=== PATIENT | male | born 1930 | race Caucasian/White ===

== ENCOUNTER 2017-02-23 10:20 | Inpatient (IN) ==
[2017-02-23] MEDS: Nitroglycerin 0.4 MG TAB.SUBL SL PRN ×2 (11:37→12:11)
[2017-02-23 11:46] LABS: Basophils # 0.1 K/mcL (0.0-0.2); Basophils % 1.3 %; Eosinophils # 0.3 K/mcL (0.0-0.6); Eosinophils % 6.2 %; Hematocrit 41.1 % (37.5-50.1); Hemoglobin 12.8 g/dL (12.9-16.9); Immature Granulocytes % 0.2 % (0-4); Lymphocytes # 0.8 K/mcL (0.6-4.6); Lymphocytes % 14.8 %; Mean Corpuscular HGB Conc 31.1 g/dL (31.6-35.5); Mean Corpuscular Hemoglobin 27.6 pg (28.0-33.3); Mean Corpuscular Volume 88.6 fL (83.0-100.0); Mean Platelet Volume 10.3 fL (9.4-12.4); Monocytes # 0.7 K/mcL (0.0-1.3); Monocytes % 12.8 %; Neutrophils # 3.6 K/mcL (1.6-8.9); Platelet Count 199 K/mcL (140-400); Red Blood Count 4.64 M/mcL (4.19-5.50); Segmented Neutrophils % 64.7 %
[2017-02-23 11:56] LABS: INR 0.9; Prothrombin Time 9.9 Seconds (9.4-12.1)
[2017-02-23 11:59] LABS: Activated Partial Thrombo Time 28.1 Seconds (26.0-36.0)
[2017-02-23 12:00] LABS: Calcium 9.5 mg/dL (8.6-10.8); Potassium 4.2 mEq/L (3.5-4.5)
[2017-02-23] MEDS ORDERED: Aspirin 81 MG TAB.CHEW PO STA (12:33)
--- NOTE | 2017-02-23 12:37 | Emergency Department Note ---
Disposition Clinical Impression: NSTEMI (non-ST elevated myocardial infarction) Disposition: Admitted As Inpatient Condition: Good Chest Pain HPI - General Chief Complaint: ED Chest Pain Stated Complaint: C/P Time Seen by Provider: 02/23/17 11:02 Source: patient, family Limitations: no limitations Vital Signs Reviewed: Yes Nursing Notes Reviewed: Yes - History of Present Illness HPI Narrative: Patient here for evaluation of chest pain. Patient has no previous history of coronary artery disease. Patient has a history of AAA repair. Patient not normally very active on a daily basis. Visiting his in the hospital today. Again having anterior chest pain that radiates down his sides as well as having squeezing of the right and left arm bilaterally. Patient had no nausea or diaphoresis. Patient symptoms are better with rest. Patient's symptoms typically improve with nitroglycerin. Aspirin given. Severity scale (1-10): 4 - Related Data Home Medications Medication Instructions Recorded Confirmed Alendronate Sodium 70 mg PO QWEEK 09/28/16 02/23/17 Cholecalciferol (Vitamin D3) 2,000 unit PO DAILY 09/28/16 02/23/17 [Vitamin D] Dexlansoprazole [Dexilant] 60 mg PO DAILY 09/28/16 02/23/17 Famotidine [Pepcid] 40 mg PO HS 09/28/16 02/23/17 Lisinopril [Zestril] 10 mg PO DAILY 09/28/16 02/23/17 Lovastatin 40 mg PO DAILY 09/28/16 02/23/17 Mirtazapine [Remeron] 15 mg PO HS 09/28/16 02/23/17 Multivits,Ca,Min/Iron/FA/Lycop 2 tab PO DAILY 09/28/16 02/23/17 [Centrum Men's Tablet] Hunter-3/Dha/Epa/Fish Oil [Fish Oil 1,000 mg PO BID 09/28/16 02/23/17 1,000 mg Softgel] Omeprazole 40 mg PO DAILY 09/28/16 02/23/17 Ranitidine HCl [Acid Double Cut Sawyer] 150 mg PO BID 09/28/16 02/23/17 Triamcinolone Acet 0.1% CRM 1 appl TP DAILY 09/28/16 02/23/17 [Kenalog] Allergies Allergy/AdvReac Type Severity Reaction Status Date / Time acetaminophen [From Percocet] Allergy Rash Verified 09/28/16 17:16 Oxycodone [From Percocet] Allergy Rash Verified 09/28/16 17:16 Review of Systems: CONSTITUTIONAL: No weight loss, fever, chills, weakness or fatigue. HEENT: Eyes: No visual changes. Ears, Nose, Throat: No hearing loss, difficulty talking or unable to swallow. SKIN: No rash or itching. CARDIOVASCULAR: Chest pain with radiation to the arms RESPIRATORY: No shortness of breath, cough or sputum. GASTROINTESTINAL: No anorexia, nausea, vomiting or diarrhea. No abdominal pain or blood. GENITOURINARY: No burning on urination or hematuria. NEUROLOGICAL: No headache, dizziness, syncope, paralysis, ataxia, numbness or tingling in the extremities. No change in bowel or bladder control. MUSCULOSKELETAL: No muscle pain, back pain, joint pain or stiffness. Chest Pain PMH - Past Medical History Medical history: Reports: aortic aneurysm, COPD, hyperlipidemia, hypertension Psychiatric history: Reports: depression - Social History Smoking Status: Former smoker Alcohol use: Reports: none Drug use: Reports: none Physical Exam General appearance: NAD, conversant Eyes: anicteric sclerae, moist conjunctivae; PERRL HENT: Atraumatic; oropharynx clear with moist mucous membranes and no mucosal ulcerations Neck: Normal inspection; Trachea midline; FROM, supple Lungs: CTA, with normal respiratory effort and no intercostal retractions CV: RRR, no MRGs Abdomen: Soft, non-tender; no rebound or gaurding Extremities: No peripheral edema or extremity lymphadenopathy Skin: Normal temperature; no rash, ulcers or lesions Psych: Appropriate mood and affect Neuro: alert and oriented to person, place and time - General Limitations: no limitations General appearance: alert Course - Reevaluation(s) Reevaluation #1: Patient reevaluated with almost complete resolution of pain however he does still have some right arm squeezing. - Consultations Consultation #1: Discussed with cardiology, Dr. Lujan. Patient will be seen in conjunction with the hospitalist service. Patient to be started on Plavix and heparin. Vital Signs Temperature 97.9 F 02/23/17 10:25 Pulse Rate 106 02/23/17 10:25 Respiratory Rate 18 02/23/17 10:25 Blood Pressure 187/98 02/23/17 10:25 O2 Sat by Pulse Oximetry 95 02/23/17 10:25 Temperature 97.9 F 02/23/17 10:25 Pulse Rate 90 02/23/17 14:12 Respiratory Rate 22 02/23/17 14:24 Blood Pressure 181/86 02/23/17 14:24 O2 Sat by Pulse Oximetry 96 02/23/17 14:12 Oxygen Delivery Oxygen Delivery Nasal Cannula Chest Pain - Medical Records Medical records reviewed: Yes I reviewed the patient's medical records. - Lab Data Lab results reviewed: Yes I reviewed the patient's lab results. Result diagrams: 02/23/17 11:20 02/23/17 11:20 Lab Results 02/23/17 02/23/17 02/23/17 Range/Units 11:20 11:20 11:20 WBC 5.5 (4.3-11.1) K/mcL RBC 4.64 (4.19-5.50) M/mcL Hgb 12.8 L (12.9-16.9) g/dL Hct 41.1 (37.5-50.1) % MCV 88.6 (83.0-100.0) fL MCH 27.6 L (28.0-33.3) pg MCHC 31.1 L (31.6-35.5) g/dL RDW 16.0 H (11.5-14.5) % Plt Count 199 (140-400) K/mcL MPV 10.3 (9.4-12.4) fL Immature Gran % 0.2 (0-4) % Seg Neutrophils % 64.7 % Lymphocytes % 14.8 % Monocytes % 12.8 % Eosinophils % 6.2 % Basophils % 1.3 % Neutrophils # 3.6 (1.6-8.9) K/mcL Lymphocytes # 0.8 (0.6-4.6) K/mcL Monocytes # 0.7 (0.0-1.3) K/mcL Eosinophils # 0.3 (0.0-0.6) K/mcL Basophils # 0.1 (0.0-0.2) K/mcL PT 9.9 (9.4-12.1) Seconds INR 0.9 APTT 28.1 (26.0-36.0) Seconds Sodium 141 (136-145) mEq/L Potassium 4.2 D (3.5-4.5) mEq/L Chloride 105 (98-109) mEq/L Carbon Dioxide 26 (19-29) mEq/L BUN 17 (8-26) mg/dL Creatinine 1.84 H (0.72-1.25) mg/dL Est GFR ( Amer) 42 L (> 60) Est GFR (Non-Af Amer) 35 L (> 60) BUN/Creatinine Ratio 9 (6-26) Glucose 141 H (70-99) mg/dL Calculated Osmolality 296 (280-300) Calcium 9.5 (8.6-10.8) mg/dL Troponin I (0-0.03) ng/mL 02/23/17 Range/Units 11:20 WBC (4.3-11.1) K/mcL RBC (4.19-5.50) M/mcL Hgb (12.9-16.9) g/dL Hct (37.5-50.1) % MCV (83.0-100.0) fL MCH (28.0-33.3) pg MCHC (31.6-35.5) g/dL RDW (11.5-14.5) % Plt Count (140-400) K/mcL MPV (9.4-12.4) fL Immature Gran % (0-4) % Seg Neutrophils % % Lymphocytes % % Monocytes % % Eosinophils % % Basophils % % Neutrophils # (1.6-8.9) K/mcL Lymphocytes # (0.6-4.6) K/mcL Monocytes # (0.0-1.3) K/mcL Eosinophils # (0.0-0.6) K/mcL Basophils # (0.0-0.2) K/mcL PT (9.4-12.1) Seconds INR APTT (26.0-36.0) Seconds Sodium (136-145) mEq/L Potassium (3.5-4.5) mEq/L Chloride (98-109) mEq/L Carbon Dioxide (19-29) mEq/L BUN (8-26) mg/dL Creatinine (0.72-1.25) mg/dL Est GFR ( Amer) (> 60) Est GFR (Non-Af Amer) (> 60) BUN/Creatinine Ratio (6-26) Glucose (70-99) mg/dL Calculated Osmolality (280-300) Calcium (8.6-10.8) mg/dL Troponin I 0.21 H* (0-0.03) ng/mL - Radiology Data Radiology results reviewed: Yes I reviewed the patient's radiology results. - EKG Data EKG attestation: Yes I reviewed and interpreted this EKG. EKG results narrative: EKG shows sinus tachycardia with occasional PVCs. Ventricular rate 100. Interval 157. QRS 118. QTC 42. Patient has no significant ST elevations or depressions that you have peaked anterior T waves as well as poor R-wave progression. Lateral T-wave changes compared to previous EKG. The inferior leads without significant change. Attestation Statement - Attestation Attestation: I personally interviewed and examined this patient and my medical decision- making was reviewed with the Resident Physician, Dr. Vieira. I agree with the documented findings, disposition and treatment plan as described except to the extent set forth below. Patient is an 86-year-old white male brought to the emergency department by his son from upstairs in the hospital. Patient's is an admitted patient currently and he and his son came to visit her this morning, and while walking into the hospital from the parking lot patient began having generalized anterior chest pain radiating into both arms bilaterally. Patient denies any prior cardiac history and his son convinced him to come down to the emergency for evaluation when the pain persisted upstairs on the floor. Patient arrives complaining of some mild shortness of breath associated with this discomfort. Patient was given aspirin and nitroglycerin with complete relief of his chest discomfort and at this time has persistent right upper arm pain that persists that he rates at about a 3 out of 10 in severity. Patient arrived hemodynamically stable in no respiratory or acute distress. Patient has a history of hypertension hyperlipidemia and has a known AAA. Patient denies any abdominal pain back pain or lower extremity weakness or syncope. I agree with patient's physical exam findings as documented. Following aspirin and nitroglycerin administration patient was continued on teletypesetter monitor and pulse ox and remained hemodynamically stable throughout his ED course. Patient had labs obtained as well as portable chest x-ray. Patient' s troponin came back significantly elevated at 0.21. On reevaluation patient still just complaining of very mild right upper arm pain. Due to ongoing pain without EKG changes and abnormal troponin we contact cardiology to discuss the case. We made them aware that the patient is still having ongoing pain and positive troponin. They agreed with initiating heparin and Plavix patient will be admitted and continuously monitored. Patient will be admitted and cardiology was consult from the ED. Case was discussed with the hospitalist.
[2017-02-23] MEDS ORDERED: *HR* Heparin 5,000 UNIT/ML VIAL IVP PRN (12:38)
[2017-02-23] MEDS ORDERED: *HR* Heparin 5,000 UNIT/ML VIAL IVP ONE (12:38)
[2017-02-23] MEDS ORDERED: 0.9 % Sodium Chloride 1,000 ML ONE (13:02)
[2017-02-23] MEDS: Heparin 25,000 UNIT/500 ML D5W 25,000 UNIT/500 ML MLS IVC SCH (13:07)
[2017-02-23] MEDS ORDERED: Acetaminophen 325 MG TABLET PO PRN (13:25)
[2017-02-23] MEDS ORDERED: Naloxone 0.4 MG/ML INJ IVP PRN (13:25)
--- NOTE | 2017-02-23 13:42 | Internal Med History&Physical ---
<LuceroSalma A - Last Filed: 02/23/17 14:58> Date of Encounter: 02/23/17 Internal Medicine - H&P: HPI History of present illness: Mr. Walker is a 86 year old male Internal Medicine - H&P: Meds Alendronate Sodium 70 mg PO QWEEK 09/28/16 [History] Cholecalciferol (Vitamin D3) [Vitamin D] 2,000 unit PO DAILY 09/28/16 [History] Dexlansoprazole [Dexilant] 60 mg PO DAILY 09/28/16 [History] Famotidine [Pepcid] 40 mg PO HS 09/28/16 [History] Lisinopril [Zestril] 10 mg PO DAILY 09/28/16 [History] Lovastatin 40 mg PO DAILY 09/28/16 [History] Mirtazapine [Remeron] 15 mg PO HS 09/28/16 [History] Multivits,Ca,Min/Iron/FA/Lycop [Centrum Men's Tablet] 2 tab PO DAILY 09/28/16 [ History] Laurens-3/Dha/Epa/Fish Oil [Fish Oil 1,000 mg Softgel] 1,000 mg PO BID 09/28/16 [ History] Omeprazole 40 mg PO DAILY 09/28/16 [History] Ranitidine HCl [Acid Panelbeater] 150 mg PO BID 09/28/16 [History] Allergies acetaminophen [From Percocet] Allergy (Verified 09/28/16 17:16) Rash Oxycodone [From Percocet] Allergy (Verified 09/28/16 17:16) Rash All Systems PM: A 10-system review of systems was performed and is negative for pertinent findings except as documented above in the HPI. - Constitutional Vitals: Temp Pulse Resp BP Pulse Ox 97.9 F 90 22 181/86 96 02/23/17 10:25 02/23/17 14:12 02/23/17 14:24 02/23/17 14:24 02/23/17 14:12 Internal Med - H&P Results - Labs CBC & Chem 7: 02/23/17 11:20 02/23/17 11:20 <Madisyn Pereira - Last Filed: 02/23/17 18:12> Date of Encounter: 02/23/17 Time of Encounter: 13:38 Assessment and Plan (1) NSTEMI (non-ST elevated myocardial infarction) Current visit: Yes Status: Acute Patient presented with bilateral arm pain and chest pain. Troponin elevated at 0.21. EKG showed t-wave changes in lateral leads. Cardiology consulted aspirin, plavix given Heparin drip started. continuous polisher and buffer serial troponins for trend lipid panel with morning labs continue home dose of statin. NPO after midnight for probable LHC. (2) Hypertension Current visit: Yes Status: Acute Hold lisinopril to protect kidneys in preparation for LCH. Start metoprolol 12.5mg BID. Hydralazine 10mg IVP Q6hr PRN for SBP >160 or DBP > 100. Qualifiers: Hypertension type: essential hypertension Qualified Code(s): I10 - Essential (primary) hypertension (3) CKD (chronic kidney disease) Current visit: Yes Status: Acute Patient with CKD, today's Cr of 1.84 is consistent with recent baseline. In anticipation of LHC, will hydrate with 0.9NS at 100mL/hr and hold lisinopril. He will get acetylcystine BID x 2 days as well. Check chemistry daily. Qualifiers: Chronic kidney disease stage: stage 3 (moderate) Qualified Code(s): N18.3 - Chronic kidney disease, stage 3 (moderate) (4) Hyperlipidemia Current visit: Yes Status: Acute check lipid panel with morning labs. continue home dose of statin. Qualifiers: Hyperlipidemia type: unspecified Qualified Code(s): E78.5 - Hyperlipidemia , unspecified (5) AAA (abdominal aortic aneurysm) Current visit: Yes Status: Acute Patient with history of AAA s/p remote repair. Patient had CT abd/pelvis which redemonstrated AAA and recommended follow up in 1 year. Qualifiers: Presence of rupture: without rupture Qualified Code(s): I71.4 - Abdominal aortic aneurysm, without rupture (6) DVT prophylaxis Current visit: Yes Status: Acute anti-embolic stockings Patient on heparin drip for NSTEMI, additional pharmacologic prophylaxis is not warranted. Internal Medicine - H&P: HPI Chief complaint: chest pain Admitted From: Emergency Dept Plans for Post Hospital Care: Home History of present illness: Mr. Walker is a 86 year old male with history of hypertension, hyperlipidemia , chronic kidney disease, abdominal aortic aneurysm status post remote repair, COPD who presented to the emergency department today with complaints of chest pain. Patient reports that he was visiting his in the hospital today and when he got to her room he experienced sharp shooting pain down his left arm he sat down and the pain got worse and he had similar pain down his right arm and then shooting pain down both sides of his chest as well. He denies any shortness of breath, palpitations, lightheadedness, headache, numbness or tingling. By the time he arrived in the ER, his symptoms had mostly resolved. He denies any other complaints. Evaluation in the emergency department revealed elevated troponin of 0.21. Creatinine was 1.84, which is consistent with his recent baseline and his chronic kidney disease. Chest x-ray showed mildly enlarged BX of right with minimal bibasilar opacification. His EKG had T -wave changes in the lateral leads. Cardiology was consult by the emergency department and they recommended he be given aspirin, Plavix, and initiated heparin drip. On exam, patient alert and oriented, in no acute distress. Lungs are mostly clear with some mild scattered wheezes bilaterally. Heart has a regular rhythm. No peripheral edema Past Med Surg Social Fam HX - Past Medical History Medical history: aortic aneurysm, COPD, hyperlipidemia, hypertension Psychiatric history: depression - Past Surgical History Surgical History: vascular surgery (AAA repair) - Social History Smoking Status: Former smoker (70 pack year history) Alcohol use: none Drug use: none All Systems PM: A 10-system review of systems was performed and is negative for pertinent findings except as documented above in the HPI. - Constitutional Constitutional: no chills, no fever(s), no night sweats - EENT Eyes: no change in vision, no discharge, no pain, no photophobia Ears: no ear discharge, no ear pain, no tinnitus Nose, mouth and throat: no dysphagia, no nasal discharge, no neck pain, no sore throat - Cardiovascular Cardiovascular ROS IM: chest pain, no diaphoresis, no dyspnea, no lightheadedness, no palpitations, no syncope - Respiratory Respiratory: no cough, no dyspnea, no wheezing, no excessive phlegm production - Gastrointestinal Gastrointestinal: no abdominal pain, no diarrhea, no hematemesis, no hematochezia, no melena, no nausea, no vomiting - Musculoskeletal Musculoskeletal ROS IM: no numbness, no tingling Additional comments: bilateral arm pain. - Integumentary Integumentary IM: no rash, no unusual bruising - Neurological Neurological ROS: no confusion, no convulsions, no focal weakness, no numbness, no tingling, no tremor(s) - Hematologic/Lymphatic Hematologic/Lymphatic: no easy bruising - Constitutional Vitals: Temp Pulse Resp BP Pulse Ox 97.9 F 94 18 141/98 96 02/23/17 10:25 02/23/17 12:59 02/23/17 12:59 02/23/17 12:59 02/23/17 12:59 General appearance: Present: A&O X 3, pleasant, no acute distress - Head Head exam: Present: atraumatic, normocephalic - Eye Eye exam: Present: PERRL, conjuntiva pink, sclera anicteric Pupils: Present: PERRL - Neck Neck exam general surgery: Present: supple, trachea midline. Absent: lymphadenopathy - Respiratory Respiratory exam: Present: CTAB. Absent: accessory muscle use, rales, rhonchi, wheezes - Cardiovascular Cardiovascular exam: Present: irregular rhythm, +S1, +S2. Absent: diastolic murmur, gallop, rubs, systolic murmur - GI/Abdominal GI/Abdominal exam: Present: normal bowel sounds, soft, no peritoneal signs. Absent: distended, tenderness - Extremities Exam Extremities exam: Present: warm, radial pulses palpable and symetrical. Absent : calf tenderness, cyanotic, pedal edema - Neurological Exam Neurological exam: Present: CN II-XII intact, oriented X3, no focal deficits. Absent: facial droop, speech deficit - Skin Skin exam: Present: dry, intact Internal Med - H&P Results - Labs CBC & Chem 7: 02/23/17 11:20 02/23/17 11:20 Labs: All Lab Results (24 Hours) 02/23/17 02/23/17 02/23/17 Range/Units 11:20 11:20 11:20 WBC 5.5 (4.3-11.1) K/mcL RBC 4.64 (4.19-5.50) M/mcL Hgb 12.8 L (12.9-16.9) g/dL Hct 41.1 (37.5-50.1) % MCV 88.6 (83.0-100.0) fL MCH 27.6 L (28.0-33.3) pg MCHC 31.1 L (31.6-35.5) g/dL RDW 16.0 H (11.5-14.5) % Plt Count 199 (140-400) K/mcL MPV 10.3 (9.4-12.4) fL Immature Gran % 0.2 (0-4) % Seg Neutrophils % 64.7 % Lymphocytes % 14.8 % Monocytes % 12.8 % Eosinophils % 6.2 % Basophils % 1.3 % Neutrophils # 3.6 (1.6-8.9) K/mcL Lymphocytes # 0.8 (0.6-4.6) K/mcL Monocytes # 0.7 (0.0-1.3) K/mcL Eosinophils # 0.3 (0.0-0.6) K/mcL Basophils # 0.1 (0.0-0.2) K/mcL PT 9.9 (9.4-12.1) Seconds INR 0.9 APTT 28.1 (26.0-36.0) Seconds Sodium 141 (136-145) mEq/L Potassium 4.2 D (3.5-4.5) mEq/L Chloride 105 (98-109) mEq/L Carbon Dioxide 26 (19-29) mEq/L BUN 17 (8-26) mg/dL Creatinine 1.84 H (0.72-1.25) mg/dL Est GFR ( Amer) 42 L (> 60) Est GFR (Non-Af Amer) 35 L (> 60) BUN/Creatinine Ratio 9 (6-26) Glucose 141 H (70-99) mg/dL Calculated Osmolality 296 (280-300) Calcium 9.5 (8.6-10.8) mg/dL Troponin I (0-0.03) ng/mL 02/23/17 Range/Units 11:20 WBC (4.3-11.1) K/mcL RBC (4.19-5.50) M/mcL Hgb (12.9-16.9) g/dL Hct (37.5-50.1) % MCV (83.0-100.0) fL MCH (28.0-33.3) pg MCHC (31.6-35.5) g/dL RDW (11.5-14.5) % Plt Count (140-400) K/mcL MPV (9.4-12.4) fL Immature Gran % (0-4) % Seg Neutrophils % % Lymphocytes % % Monocytes % % Eosinophils % % Basophils % % Neutrophils # (1.6-8.9) K/mcL Lymphocytes # (0.6-4.6) K/mcL Monocytes # (0.0-1.3) K/mcL Eosinophils # (0.0-0.6) K/mcL Basophils # (0.0-0.2) K/mcL PT (9.4-12.1) Seconds INR APTT (26.0-36.0) Seconds Sodium (136-145) mEq/L Potassium (3.5-4.5) mEq/L Chloride (98-109) mEq/L Carbon Dioxide (19-29) mEq/L BUN (8-26) mg/dL Creatinine (0.72-1.25) mg/dL Est GFR ( Amer) (> 60) Est GFR (Non-Af Amer) (> 60) BUN/Creatinine Ratio (6-26) Glucose (70-99) mg/dL Calculated Osmolality (280-300) Calcium (8.6-10.8) mg/dL Troponin I 0.21 H* (0-0.03) ng/mL - Impressions ITS Impressions Chest X-Ray 02/23/17 10:36 IMPRESSION: 1. Mildly enlarged cardiac silhouette. 2. Minimal bibasilar opacification, left greater than right, which may represent atelectasis versus airspace disease. D/ / Cj Mendoza MD / Cj Mendoza MD Interpreting Provider: Cj Mendoza MD - Diagnostic Studies Chest x-ray Additional comments: Chest X-Ray 02/23/17 10:36 IMPRESSION: 1. Mildly enlarged cardiac silhouette. 2. Minimal bibasilar opacification, left greater than right, which may represent atelectasis versus airspace disease. D/ / Cj Mendoza MD / Cj Mendoza MD Interpreting Provider: Cj Mendoza MD <Gray Knox - Last Filed: 02/23/17 18:44> Date of Encounter: 02/23/17 Internal Medicine - H&P: HPI History of present illness: Mr. Walker is a 86 year old male All Systems PM: A 10-system review of systems was performed and is negative for pertinent findings except as documented above in the HPI. - Constitutional Vitals: Temp Pulse Resp BP Pulse Ox 97.9 F 83 14 157/83 98 02/23/17 10:25 02/23/17 15:32 02/23/17 15:32 02/23/17 18:35 02/23/17 15:32 Internal Med - H&P Results - Labs CBC & Chem 7: 02/23/17 11:20 02/23/17 11:20 - Attending Attestation I have personally performed a face to face evaluation on this patient and I discussed the assessment and plan with the nurse practitioner. I have reviewed and agree with the documented care plan. History and Exam by me shows: Mr. Walker is a 86 year old male with history of hypertension, hyperlipidemia , chronic kidney disease, abdominal aortic aneurysm status post remote repair, COPD who presented to the emergency department today with complaints of chest pain. Patient reports that he was visiting his in the hospital today and when he got to her room he experienced sharp shooting pain down his left arm. Now his pain completely resolved Gen: A, A, O x 3 Chest: DBS b/l basal regions No crackles Heart: S1S2 +, RRR, No murmurs a/p 1. Acute initial NSTEMI EKG showed T wave changes in lateral leads Troponin significantly elevated at 0.21 and pt does have typical angina equivalent chest pain agree with starting him on Heparin gtt and Plavix Cont ASA ..Will start him on low dose B aline Metoprolol 12.5mg BID Scheduled for [facility] in AM by Card
[2017-02-23] MEDS: 0.9 % Sodium Chloride 1,000 ML IVC SCH (15:58)
[2017-02-23] MEDS: *HR* Acetylcysteine 20% 600 MG/3 ML ORAL SYRINGE PO SCH ×2 (16:04→21:05)
[2017-02-23 20:02] LABS: Activated Partial Thrombo Time > 320.0 Seconds (26.0-36.0)
[2017-02-23 20:56] LABS: Heparin anti-factor XA UFH 1.27 IU/mL (0.30-0.70)
[2017-02-23] MEDS ORDERED: NON-FORMULARY MEDICATION 1 EACH EACH (Ranitidine Hcl [Acid Reducer] 150 MG) PO SCH (21:00)
[2017-02-23] MEDS: Mirtazapine 15 MG TABLET PO SCH (21:05)
[2017-02-23] MEDS: Famotidine 20 MG TABLET PO SCH (21:05)
[2017-02-24 01:04] LABS: Basophils # 0.1 K/mcL (0.0-0.2); Basophils % 1.6 %; Eosinophils # 0.4 K/mcL (0.0-0.6); Eosinophils % 7.5 %; Hematocrit 40.9 % (37.5-50.1); Hemoglobin 12.6 g/dL (12.9-16.9); Immature Granulocytes % 0.2 % (0-4); Lymphocytes # 1.1 K/mcL (0.6-4.6); Lymphocytes % 19.9 %; Mean Corpuscular HGB Conc 30.8 g/dL (31.6-35.5); Mean Corpuscular Hemoglobin 27.3 pg (28.0-33.3); Mean Corpuscular Volume 88.5 fL (83.0-100.0); Mean Platelet Volume 10.8 fL (9.4-12.4); Monocytes % 16.6 %; Neutrophils # 3.1 K/mcL (1.6-8.9); Platelet Count 206 K/mcL (140-400); Red Blood Count 4.62 M/mcL (4.19-5.50); Red Cell Distribution Width 15.9 % (11.5-14.5); Segmented Neutrophils % 54.2 %
[2017-02-24 01:25] LABS: Calcium 8.8 mg/dL (8.6-10.8); Chol/HDL Ratio 5.7 (0-4.9); Potassium 4.2 mEq/L (3.5-4.5)
[2017-02-24] MEDS: 0.9 % Sodium Chloride 1,000 ML IVC SCH ×2 (01:55→17:12)
[2017-02-24] MEDS: Aspirin 81 MG TAB.CHEW PO SCH (09:37)
[2017-02-24] MEDS: *HR* Acetylcysteine 20% 600 MG/3 ML ORAL SYRINGE PO SCH ×2 (09:37→20:23)
[2017-02-24] MEDS: *HR* Heparin 5,000 UNIT/ML VIAL IVP PRN (09:40)
--- NOTE | 2017-02-24 10:29 | Cardiology Consult Note ---
Date of Encounter: 02/24/17 Time of Encounter: 10:27 Assessment and Plan (1) NSTEMI (non-ST elevated myocardial infarction) Current Visit: Yes Status: Acute This is a 86 y.o. male with Hyperlipidemia and significant tobacco abuse history. Troponins elevated and peaked at 1.78. Most recent TN 1.65 Patient had typical chest pain symptoms. currently he is chest pain free and hemodynamically stable. EKG had some T wave inversions in leads 2,3, and AVF. KERRI score of 4 We will hold off on LHC today given his renal function and questionable renal mass. Would recommend continuing IV fluids. Would recommend consultation to nephrology for input on patients renal mass ( possible Renal Cell carcinoma per report) and patient would also be a high risk for kidney injury should he require LHC. We will check a TTE. continue heparin gtt, Lipitor, ASA, Plavix, and beta aline. (2) CKD (chronic kidney disease) stage 3, GFR 30-59 ml/min Current Visit: Yes Status: Acute as stated above. (3) Renal mass Current Visit: Yes Status: Acute Ct scan of the abdomen from 09/28/16 reveals: "Heterogeneously enhancing lesions again identified along the anterior aspect of the right kidney which measures approximately 6.2 x 6.4 cm. As described on prior exam this lesion was smaller on prior study dated September 06, 2007. Given the enhancing component of the lesion remains indeterminate and renal cell carcinoma cannot be excluded. " management per primary team. May consider nephrology consultation for their input. (4) Former smoker Current Visit: Yes Status: Acute patient smoked 69 years and has quit 4 years ago. (5) Hyperlipidemia Current Visit: Yes Status: Acute continue lipitor. Qualifiers: Qualified Code(s): E78.5 - Hyperlipidemia, unspecified Discussion w patient/family: The assessment and plan as outlined above was discussed with the patient and/or family members who expressed understanding and agreement. All questions were answered. Thank you for involving us in the care of your patient. Please call with any questions. History of Present Illness Consult date: 02/24/17 Requesting physician: Madisyn Pereira Consult reason: NSTEMI Chief complaint: chest pain History of present illness: Mr. Walker is a 86 year old male who was admitted to [facility] on 02/23/17 for NSTEMI. Today Mr. Walker states that he had come to the hospital to visit i his who is ill. He states that he was dropped off at the wrong side of the hospital and had to walk a long ways and climb a flight of stairs prior to getting to his 's room. He states that he begin having 10/10 pain in the left arm. He states is was a squeezing pain. He then began to have pain in the right arm and them mid sternal chest pain. He states that the pain lasted approximately 45 minutes and relieved while he was resting. He states that his pain was relieved prior to receiving the nitroglycerine tablets. He denies any associated , nausea, diaphoresis, dyspnea, presyncope, or palpitations. He states he is sedentary at baseline and spends most of his time sitting and dose not exercise. He has no further complaints or concerns at this time. Past Med Surg Social Fam HX - Past Medical History Medical history: aortic aneurysm, COPD, hyperlipidemia, hypertension Psychiatric history: depression - Past Surgical History Surgical History: vascular surgery (AAA repair) - Social History Smoking Status: Former smoker (70 pack year history) Alcohol use: none Drug use: none - Family History Mother Living Status: Age at : 99 Cause of : HF Father Living Status: Age at : 87 Cause of : stroke Medications and Allergies Alendronate Sodium 70 mg PO QWEEK 09/28/16 [History] Cholecalciferol (Vitamin D3) [Vitamin D] 2,000 unit PO DAILY 09/28/16 [History] Dexlansoprazole [Dexilant] 60 mg PO DAILY 09/28/16 [History] Famotidine [Pepcid] 40 mg PO HS 09/28/16 [History] Lisinopril [Zestril] 10 mg PO DAILY 09/28/16 [History] Lovastatin 40 mg PO DAILY 09/28/16 [History] Mirtazapine [Remeron] 15 mg PO HS 09/28/16 [History] Multivits,Ca,Min/Iron/FA/Lycop [Centrum Men's Tablet] 2 tab PO DAILY 09/28/16 [ History] [place]-3/Dha/Epa/Fish Oil [Fish Oil 1,000 mg Softgel] 1,000 mg PO BID 09/28/16 [ History] Omeprazole 40 mg PO DAILY 09/28/16 [History] Ranitidine HCl [Acid Tool Grinding Technician] 150 mg PO BID 09/28/16 [History] Allergies acetaminophen [From Percocet] Allergy (Verified 09/28/16 17:16) Rash Oxycodone [From Percocet] Allergy (Verified 09/28/16 17:16) Rash All Systems Review: A 10-system review of systems was performed and is negative for pertinent findings except as documented above in the HPI. - Constitutional Constitutional: no night sweats, no weakness, no weight gain, no weight loss - EENT Eyes: no blurred vision, no loss of vision, no pain - Cardiovascular Cardiovascular: as per HPI - Respiratory Respiratory: no cough, no dyspnea, no hemoptysis, no wheezing - Gastrointestinal Gastrointestinal: no abdominal pain, no constipation, no diarrhea, no hematemesis, no hematochezia, no nausea - Genitourinary Genitourinary: no dysuria, no hematuria - Musculoskeletal Musculoskeletal: no abnormal gait, no arthralgias - Integumentary Integumentary: no rash, no unusual bruising - Neurological Neurological: no abnormal speech, no dizziness, no focal weakness, no syncope - Hematological/Lymphatic Hematologic/Lymphatic: no easy bleeding, no easy bruising Physical Examination Vital Signs, Last 4 Hours Temp Pulse Resp BP Pulse Ox 02/24/17 07:12 97.8 F 81 18 146/98 96 General: Conversant, No Apparent Distress HEENT: Atraumatic, Normocephaly, Mucus Membranes Moist Neck: No JVD, Normal carotid pulses Cardiac: Reg Rate and Rhythm, Normal S1 and S2, Other (has a mild 2/6 systolic ejection murmur heard at Right upper sternal border. No radiation. ) Lungs: Normal Breath Sounds, No Wheeze, Rales, Rhonchi Neuro: Alert and responsive, No focal deficits noted Abdomen: Soft, Non-Tender Skin: No rashes noted on visualized skin Musculoskeletal: No Chest Wall Tenderness Extremities: No Clubbing, No Cyanosis, No Edema, Normal Pulses Results 02/24/17 00:53 02/24/17 00:53 Lab Results 02/23/17 02/23/17 02/24/17 19:03 19:03 00:53 WBC Hgb Hct Plt Count APTT > 320.0 H* D Sodium Potassium Chloride Carbon Dioxide BUN Creatinine Glucose Calcium Troponin I 0.98 H* 1.78 H* 02/24/17 02/24/17 02/24/17 00:53 00:53 00:53 WBC 5.7 Hgb 12.6 L Hct 40.9 Plt Count 206 APTT 59.8 H D Sodium 141 Potassium 4.2 Chloride 107 Carbon Dioxide 27 BUN 15 Creatinine 1.63 H Glucose 108 H Calcium 8.8 Troponin I 02/24/17 02/24/17 05:50 07:41 WBC Hgb Hct Plt Count APTT 51.2 H Sodium Potassium Chloride Carbon Dioxide BUN Creatinine Glucose Calcium Troponin I 1.65 H* - EKG Interpretation EKG results cardiology: personally reviewed (notable for T wave inversions in 2, 3 and AVF. sinus bradycardia rate of 53, Normal AK, QT intervals . No ST elevations or depressions.) Consult Discharge Plan - Plan Additional Instructions: appt requested Referrals: Richie Retana MD [Primary Care Provider] -
--- NOTE | 2017-02-24 12:05 | Internal Med Progress Note ---
Date of Encounter: 02/25/17 Time of Encounter: 12:03 - Assessment and plan (1) NSTEMI (non-ST elevated myocardial infarction) Current Visit: Yes Status: Acute (2) Hypertension Current Visit: Yes Status: Chronic Qualifiers: Hypertension type: essential hypertension Qualified Code(s): I10 - Essential (primary) hypertension (3) Hyperlipidemia Current Visit: Yes Status: Acute Qualifiers: Hyperlipidemia type: unspecified Qualified Code(s): E78.5 - Hyperlipidemia , unspecified (4) CKD (chronic kidney disease) Current Visit: Yes Status: Acute Qualifiers: Chronic kidney disease stage: stage 3 (moderate) Qualified Code(s): N18.3 - Chronic kidney disease, stage 3 (moderate) - Subjective Interval history: Mr. Al Maya is an 85-year-old male past medical history significant for hypertension and dyslipidemia presented with atypical chest pain and ruled in for non-ST elevation [place]. Cardiology is being consulted. He also has underlying chronic kidney disease. He is already on beta aline aspirin and Plavix and IV heparin. Further cardiac intervention is expected. - Constitutional Vitals: Temp Pulse Resp BP Pulse Ox 97.8 F 81 18 146/98 96 02/24/17 07:12 02/24/17 07:12 02/24/17 07:12 02/24/17 07:12 02/24/17 07:12 General appearance: Present: A&O X 3, pleasant, no acute distress - Head Head exam: Present: atraumatic, normocephalic - Eye Eye exam: Present: PERRL, conjuntiva pink, sclera anicteric Pupils: Present: PERRL - Neck Neck exam general surgery: Present: supple, trachea midline. Absent: lymphadenopathy - Respiratory Respiratory exam: Present: CTAB. Absent: accessory muscle use, rales, rhonchi, wheezes - Cardiovascular Cardiovascular exam: Present: RRR, +S1, +S2. Absent: diastolic murmur, gallop, rubs, systolic murmur - GI/Abdominal GI/Abdominal exam: Present: normal bowel sounds, soft, no peritoneal signs. Absent: distended, tenderness - Extremities Exam Extremities exam: Present: warm, radial pulses palpable and symetrical. Absent : calf tenderness, cyanotic, pedal edema - Neurological Exam Neurological exam: Present: CN II-XII intact, oriented X3, no focal deficits. Absent: pronater drift, facial droop, speech deficit - Skin Skin exam: Present: dry, intact Internal Medicine: Result - Labs CBC & Chem 7: 02/24/17 00:53 02/25/17 06:01 Labs: Short CBC 02/24/17 Range/Units 00:53 WBC 5.7 (4.3-11.1) K/mcL Hgb 12.6 L (12.9-16.9) g/dL Hct 40.9 (37.5-50.1) % Plt Count 206 (140-400) K/mcL Neutrophils # 3.1 (1.6-8.9) K/mcL BMP 02/24/17 00:53 Sodium 141 Potassium 4.2 Chloride 107 Carbon Dioxide 27 BUN 15 Creatinine 1.63 H Glucose 108 H Calcium 8.8 Cardiac Enzymes 02/23/17 02/24/17 02/24/17 Range/Units 19:03 00:53 05:50 Troponin I 0.98 H* 1.78 H* 1.65 H* (0-0.03) ng/mL - ABG Interpretation ABG results: PT/INR, D-dimer PT 9.9 Seconds (9.4-12.1) 02/23/17 11:20 Consult Discharge Plan - Plan Referrals: Richie Retana MD [Primary Care Provider] - 03/04/17 1:00 pm
--- NOTE | 2017-02-24 15:22 | Electrocardiograph Report ---
[address] [address] Test Date: 2017-02-23 Pat Name: [facility] Department: 102 Room: 2NE24 Gender: M Jig Builder Helper: : 1930 Requested By: Sunshine See Order Number: [id number] Reading MD: Jazmine Lujan Measurements Intervals [place] Rate: 100 P: 60 TN: 157 QRS: -38 QRSD: 118 T: 75 QT: 365 QTc: 422 Interpretive Statements SINUS TACHYCARDIA WITH OCCASIONAL VENTRICULAR PREMATURE COMPLEXES WITH OCCASIONAL SUPRAVENTRICULAR PREMATURE COMPLEXES MARKED LEFT AXIS DEVIATION MODERATE INTRAVENTRICULAR CONDUCTION DELAY MODERATE ST DEPRESSION Electronically Signed On 02-24-2017 15:21:17 EDT by Jazmine Lujan
--- NOTE | 2017-02-24 15:30 | Electrocardiograph Report ---
[address] [place] [address] Test Date: 2017-02-23 Pat Name: [facility] Department: 111 Room: 2NE24 Gender: M Plate Hanger: SEUN : 1930 Requested By: Nya Hirsch Order Number: [id number] Reading MD: Jazmine Lujan Measurements Intervals [place] Rate: 53 P: 58 NH: 155 QRS: -47 QRSD: 117 T: -55 QT: 467 QTc: 451 Interpretive Statements SINUS BRADYCARDIA WITH OCCASIONAL VENTRICULAR PREMATURE COMPLEXES MARKED LEFT AXIS DEVIATION MODERATE INTRAVENTRICULAR CONDUCTION DELAY ST DEVIATION AND MODERATE T-WAVE ABNORMALITY, CONSIDER INFERIOR ISCHEMIA Electronically Signed On 02-24-2017 15:28:21 EDT by Jazmine Lujan
[2017-02-24] MEDS: Famotidine 20 MG TABLET PO SCH (20:23)
[2017-02-24] MEDS: Mirtazapine 15 MG TABLET PO SCH (20:23)
[2017-02-24] MEDS: Heparin 25,000 UNIT/500 ML D5W 25,000 UNIT/500 ML MLS IVC SCH (20:26)
[2017-02-24] MEDS ORDERED: Melatonin 3 MG TABLET PO PRN (21:57)
[2017-02-25] MEDS: *HR* Heparin 5,000 UNIT/ML VIAL IVP PRN (00:21)
[2017-02-25] MEDS: 0.9 % Sodium Chloride 1,000 ML IVC SCH ×2 (03:15→12:52)
[2017-02-25 06:29] LABS: Albumin 3.3 g/dL (3.5-5.0); Albumin/Globulin Ratio 1.1 (1.1-2.2); Bilirubin,Total 0.8 mg/dL (0.2-1.2); Calcium 8.5 mg/dL (8.6-10.8); Globulin 3.1 g/dL (2.4-3.5); Potassium 4.9 mEq/L (3.5-4.5); Total Protein 6.4 g/dL (6.0-8.3)
[2017-02-25] MEDS: Aspirin 81 MG TAB.CHEW PO SCH (09:03)
--- NOTE | 2017-02-25 10:18 | Cardiology Progress Note ---
Date of Encounter: 02/25/17 Time of Encounter: 10:13 Assessment and Plan (1) NSTEMI (non-ST elevated myocardial infarction) Current Visit: Yes Status: Acute This is a 86 y.o. male with Hyperlipidemia and significant tobacco abuse history. Troponins elevated and peaked at 1.78. Most recent TN 1.65 Patient had typical chest pain symptoms. EKG had some T wave inversions in leads 2,3, and AVF. KERRI score of 4 TTE pending. Patient is having recurrent symptoms and had an episode of chest pain overnight. currently he is chest pain free and hemodynamically stable. Scr has improved and is 1.44 this AM. Given recurring symptoms and improvement of renal function we will proced with [facility] today. continue Lipitor, ASA, Plavix, and beta aline. (2) CKD (chronic kidney disease) stage 3, GFR 30-59 ml/min Current Visit: Yes Status: Acute as stated above. Scr improving. (3) Renal mass Current Visit: Yes Status: Acute Ct scan of the abdomen from 09/28/16 reveals: "Heterogeneously enhancing lesions again identified along the anterior aspect of the right kidney which measures approximately 6.2 x 6.4 cm. As described on prior exam this lesion was smaller on prior study dated September 06, 2007. Given the enhancing component of the lesion remains indeterminate and renal cell carcinoma cannot be excluded. " management per primary team. May consider nephrology consultation for their input. (4) Former smoker Current Visit: Yes Status: Acute patient smoked 69 years and has quit 4 years ago. (5) Hyperlipidemia Current Visit: Yes Status: Acute continue lipitor. Qualifiers: Qualified Code(s): E78.5 - Hyperlipidemia, unspecified (6) Hypertension Current Visit: Yes Status: Acute BP currently above goal. Recommend increasing metoprolol to 25 BID. Qualifiers: Qualified Code(s): I10 - Essential (primary) hypertension Discussion w patient/family: The assessment and plan as outlined above was discussed with the patient and/or family members who expressed understanding and agreement. All questions were answered. Thank you for involving us in the care of your patient. Please call with any questions. Subjective Principal diagnosis: NSTEMI Interval history: Jose Antonioetn states he had an episode of mild chest pain last night. He described this as midsternal and was a pressure. It was non radiating this time and was mild. He states he did not tell anyone because it was mild and did not want to bother the Nursing staff late at night. He denies any associated symptoms such as dyspnea, nausea, syncope, presyncope. He has no further complaints or concerns at this time. Objective Vital Signs, Last 4 Hours Temp Pulse Resp BP Pulse Ox 02/25/17 07:00 97.7 F 94 18 161/92 94 General: Conversant, No Apparent Distress HEENT: Atraumatic, Normocephaly, Mucus Membranes Moist, Other Neck: No JVD, Normal carotid pulses Cardiac: Reg Rate and Rhythm, Normal S1 and S2, No Murmur Lungs: Normal Breath Sounds, No Wheeze, Rales, Rhonchi Neuro: Alert and responsive, No focal deficits noted Abdomen: Soft, Non-Tender Skin: No rashes noted on visualized skin Musculoskeletal: No Chest Wall Tenderness Extremities: No Clubbing, No Cyanosis, No Edema, Normal Pulses Results 02/24/17 00:53 02/25/17 06:01 Lab Results 02/24/17 02/24/17 02/25/17 15:42 23:13 06:01 APTT 80.1 H D 58.4 H Sodium 137 Potassium 4.9 H Chloride 109 Carbon Dioxide 19 BUN 19 Creatinine 1.44 H Glucose 129 H Calcium 8.5 L Total Bilirubin 0.8 AST 26 ALT 19 Alkaline Phosphatase 79 02/25/17 06:01 APTT 82.7 H Sodium Potassium Chloride Carbon Dioxide BUN Creatinine Glucose Calcium Total Bilirubin AST ALT Alkaline Phosphatase Consult Discharge Plan - Plan Referrals: Richie Retana MD [Primary Care Provider] - 03/04/17 1:00 pm
--- NOTE | 2017-02-25 13:14 | Nephrology Consult Note ---
Date of Encounter: 02/25/17 Time of Encounter: 12:30 Assessment and Plan (1) CKD (chronic kidney disease) stage 3, GFR 30-59 ml/min Current Visit: Yes Status: Chronic SCr has trended better with volume expansion from IVF (0.9% saline), suggesting a prerenal component to an ERASMO that was noted on admission. No indications for SHIFT MGR at this time. Regarding his risks from IV contrast from the LHC. Presently, he is euvolemic and has been receiving NAC 600mg po bid (should continue for three days). From a nephrology perspective, it appears reasonable to proceed with LHC, but since the left renal mass may likely need nephrectomy vs ablation perhaps soon, ideally if possible to avoid a drug eluting stent. I had a long conversation with the pt and his son about the R/B/I and potential for ERASMO-LEONA vs even dialysis (thought the latter risk appears low likely <5%), but since his SCr has been trending better, it appears that now is a reasonable window if he were to have a LHC. Continue IVF and track a BMP afterwards. Thank you for consulting the [facility] group. Will follow with you. (2) Hypertension Current Visit: Yes Status: Chronic Continue to hold lisinopril at this time d/t the upcoming IV contrast exposure. Though his BPs are somewhat elevated, he would likely better tolerate the contrast exposure by minimizing the nephrotoxin exposures presently. Okay to use a CCB or perhaps Hydralazine 10mg IV prn systolic BP >175 Qualifiers: Hypertension type: essential hypertension Qualified Code(s): I10 - Essential (primary) hypertension (3) NSTEMI (non-ST elevated myocardial infarction) Current Visit: Yes Status: Acute As per cardio (4) Renal mass Current Visit: Yes Status: Chronic I reviewed the renal U/S results with the patient. He should see [facility] again, but not necessarily urgently. Ideally avoid placing a DARRIAN, so as to allow potential nephrectomy vs ablation options. This could potentially be addressed as an outpatient. History of Present Illness - Reason for Consult Consult date: 02/25/17 Acute Kidney Injury, Chronic Kidney Disease Requesting physician: Hina Turner - Chief Complaint NSTEMI and ERASMO on CKD stage III - History of Present Illness Al Walker is a very pleasant 86 y/o gentleman with a pmh of CKD stage III, left renal mass (presumed to be RCC), and et al who presented with chest pains and was found to have an ERASMO on CKD stage III plus elevated troponin. He is hard of hearing. Nephrology was consulted today to help assess renal risks from the IV contrast and to workup the left renal mass(es). The pt' s son also arrived during my interview with the pt who helped provide history. I also reviewed the Dr. Tommie Vazquez's notes, who just recently consulted / established care with the patient in the Nephrology clinic. The pt denied use of NSAIDs or recent N/V/D. He reports no problems with swelling/edema. He voiced knowing about the history of a renal mass but was not fully aware that a few years ago he was essentially diagnosed with RCC. The did recall being offered the option for nephrectomy when he was seen by Dr. Marquez at [facility] back in 2012, but the pt said that he had chosen to avoid surgery if at all possible. He presented with CP radiating down the left arm and cardiology was consulted; and, they recommended proceeding with a LHC, if okay with nephrology. He has received Mucomyst 600mg po bid the last few days. Today the pt voiced no major complaints. His son took notes. Past Med Surg Social Fam HX - Past Medical History Medical history: aortic aneurysm, COPD, hyperlipidemia, hypertension Psychiatric history: depression - Past Surgical History Surgical History: vascular surgery (AAA repair) - Social History Smoking Status: Former smoker (70 pack year history) Alcohol use: none Drug use: none - Family History Mother Living Status: Age at : 99 Cause of : HF Father Living Status: Age at : 87 Cause of : stroke Medications and Allergies Alendronate Sodium 70 mg PO QWEEK 09/28/16 [History] Cholecalciferol (Vitamin D3) [Vitamin D] 2,000 unit PO DAILY 09/28/16 [History] Dexlansoprazole [Dexilant] 60 mg PO DAILY 09/28/16 [History] Famotidine [Pepcid] 40 mg PO HS 09/28/16 [History] Lisinopril [Zestril] 10 mg PO DAILY 09/28/16 [History] Lovastatin 40 mg PO DAILY 09/28/16 [History] Mirtazapine [Remeron] 15 mg PO HS 09/28/16 [History] Multivits,Ca,Min/Iron/FA/Lycop [Centrum Men's Tablet] 2 tab PO DAILY 09/28/16 [ History] [place]-3/Dha/Epa/Fish Oil [Fish Oil 1,000 mg Softgel] 1,000 mg PO BID 09/28/16 [ History] Omeprazole 40 mg PO DAILY 09/28/16 [History] Ranitidine HCl [Acid Ribbon Inker] 150 mg PO BID 09/28/16 [History] Allergies acetaminophen [From Percocet] Allergy (Verified 09/28/16 17:16) Rash Oxycodone [From Percocet] Allergy (Verified 09/28/16 17:16) Rash Review of Systems All Systems: reviewed and no additional remarkable complaints except as stated Exam - Vital Signs Vital signs: Initial Vital Signs Temp Pulse Resp BP Pulse Ox 97.9 F 106 18 187/98 95 02/23/17 10:25 02/23/17 10:25 02/23/17 10:25 02/23/17 10:25 02/23/17 10:25 Vital Signs - Last 8 Hours Temp Pulse Resp BP Pulse Ox 02/25/17 11:00 98 F 70 18 116/77 96 02/25/17 07:00 97.7 F 94 18 161/92 94 Intake and Output 02/24/17 02/25/17 02/25/17 23:59 07:59 15:59 Intake Total 200 / 200 1249 / 1249 1000 / 1000 Output Total 750 / 750 200 / 200 Balance 200 / 200 499 / 499 800 / 800 Intake: IV Fluids 200 / 200 1249 / 1249 1000 / 1000 0.9 % Sodium Chloride 1, 1000 / 1000 1000 / 1000 000 ML @ 100 mls/hr IVC . Q10H ERIK Rx#:[id number] Heparin 25,000 UNIT/500 200 / 200 249 / 249 ML D5W 25,000 unit In 500 ml @ 11.916 UNIT/KG/HR 19.999 mls/hr IVC .Q24H ERIK Rx#:[id number] Oral 0 / 0 Output: Urine 750 / 750 200 / 200 Other: # Voids 0 Weight 86.3 kg Patient Weight 02/25/17 23:59 Weight 86.3 kg - General Appearance General appearance: well-developed, well-nourished, appears started age EENT: ATNC, PERRL, mucous membranes moist, hearing diminished Neck: supple Respiratory: clear Cardiology: no murmurs, no edema, regular rate, normal S1, normal S2 Gastrointestinal: normoactive bowel sounds, no tenderness, no guarding Integumentary: no rash, warm and dry Neurologic: no focal deficit, no asterixis, alert and oriented x3 Musculoskeletal: no erythema, no cyanosis, no clubbing Psychiatric: mood/affect appropriate, cooperative Results - Lab Results 02/24/17 00:53 02/25/17 06:01 Most recent lab results Calcium 8.5 mg/dL (8.6-10.8) L 02/25/17 06:01 Consult Discharge Plan - Plan Referrals: Richie Retana MD [Primary Care Provider] - 03/04/17 1:00 pm
[2017-02-25] MEDS ORDERED: Verapamil 5 MG/2 ML VIAL ONE ×2 (14:43→18:07)
[2017-02-25] MEDS ORDERED: *HR* Heparin 10,000 UNIT/10 ML VIAL ONE ×2 (14:44→18:07)
[2017-02-25] MEDS ORDERED: 0.9 % Sodium Chloride 1,000 ML ONE ×3 (14:44→18:07)
[2017-02-25] MEDS ORDERED: Nitroglycerin 1,000 MCG/10 ML VIAL IV ONE ×2 (14:44→18:07)
[2017-02-25] MEDS ORDERED: Heparin 1,000 UNITS/500 mL NS 500 ML ONE ×2 (14:44→18:07)
[2017-02-25] MEDS ORDERED: *HR* Midazolam HCl 2 MG/2 ML VIAL ONE (15:10)
[2017-02-25] MEDS ORDERED: *HR* FentaNYL (PF) 100 MCG/2 ML VIAL ONE (15:10)
--- NOTE | 2017-02-25 15:18 | Pre-Sedation Evaluation ---
Pre-sedation evaluation - Pre-sedation checklist Date of procedure: 02/25/17 Procedure: LEFT HEART CATH Recent Vitals: Last Vital Signs Temp 98 F 02/25/17 11:00 Pulse 70 02/25/17 11:00 Resp 18 02/25/17 11:00 BP 116/77 02/25/17 11:00 Pulse Ox 96 02/25/17 11:00 H&P (including ROS) documented in medical record: Yes Previous reaction to sedatives/anesthetics: Yes; explain in comment Dietary Status: NPO after Midnight Dentition: dentures removed ASA Classification *see protocol: CLASS II-Mild systemic disease Plan of Care: Pt appropriate candidate for procedure/moderate/conscious sedation , Risks/benefits of procedure/sedation discussed w/ patient/family
[2017-02-25] MEDS ORDERED: Nitroglycerin 25 MG/250 ML INFUS..BTL IVC ONE (16:09)
[2017-02-25] MEDS ORDERED: Ondansetron 4 MG/2 ML VIAL ONE ×2 (16:32→17:57)
--- NOTE | 2017-02-25 16:39 | Internal Med Progress Note ---
Date of Encounter: 02/25/17 Time of Encounter: 16:35 - Assessment and plan (1) NSTEMI (non-ST elevated myocardial infarction) Current Visit: Yes Status: Acute Assessment and plan: patient presented with non-STEMI and plan to getcardiac catheter (2) Hypertension Current Visit: Yes Status: Chronic Assessment and plan: continue home medication and daily monitoring Qualifiers: Qualified Code(s): I10 - Essential (primary) hypertension (3) Hyperlipidemia Current Visit: Yes Status: Acute Assessment and plan: triglyceride 365 total cholesterol 164 and LDL 68 HDL 29. Lipitor 10 mg daily added Qualifiers: Qualified Code(s): E78.5 - Hyperlipidemia, unspecified (4) CKD (chronic kidney disease) Current Visit: Yes Status: Acute Assessment and plan: cK D stage IIIimproving withIV fluid challenge Qualifiers: Qualified Code(s): N18.3 - Chronic kidney disease, stage 3 (moderate) - Subjective Interval history: Mr. Al Monk [facility] is an 85-year-old male past medical history significant for hypertension and dyslipidemia presented with atypical chest pain and ruled in for non-ST elevation [place]. Cardiology is being consulted. He also has underlying chronic kidney disease. He is already on beta aline aspirin and Plavix and IV heparin. Further cardiac intervention is expected. 02/25 patient feels normal. No chest pain or shortness of breath. Echocardiogram showed possible inferior basal wall motion abnormality with low normalto slightly abnormal EF but nocalculated value given. Renal ultrasound done this year as well as CT abdomen reviewed. Both were done before hospital admission. Patient has a right renal olid mass which is growing in sizeand also has a right renal cyst. Nephrology has seen the patient and determined that patient will need surgery for righrenal mass. As we hydrated the patient his creatinine is improving and nephrology is okay to proceed with left cardiac catheter. I will add some Mucomyst for what ever Vallue it adds.patient renal function will be monitored on daily basis. Questions answered. - Constitutional Vitals: Temp Pulse Resp BP Pulse Ox 98 F 70 18 116/77 96 02/25/17 11:00 02/25/17 11:00 02/25/17 11:00 02/25/17 11:00 02/25/17 11:00 General appearance: Present: A&O X 3, pleasant, no acute distress - Head Head exam: Present: atraumatic, normocephalic - Eye Eye exam: Present: PERRL, conjuntiva pink, sclera anicteric Pupils: Present: PERRL - Neck Neck exam general surgery: Present: supple, trachea midline. Absent: lymphadenopathy - Respiratory Respiratory exam: Present: CTAB. Absent: accessory muscle use, rales, rhonchi, wheezes - Cardiovascular Cardiovascular exam: Present: RRR, +S1, +S2. Absent: diastolic murmur, gallop, rubs, systolic murmur - GI/Abdominal GI/Abdominal exam: Present: normal bowel sounds, soft, no peritoneal signs. Absent: distended, tenderness - Extremities Exam Extremities exam: Present: warm, radial pulses palpable and symetrical. Absent : calf tenderness, cyanotic, pedal edema - Neurological Exam Neurological exam: Present: CN II-XII intact, oriented X3, no focal deficits. Absent: pronater drift, facial droop, speech deficit - Skin Skin exam: Present: dry, intact Internal Medicine: Result - Labs CBC & Chem 7: 02/24/17 00:53 02/25/17 06:01 Labs: BMP 02/25/17 06:01 Sodium 137 Potassium 4.9 H Chloride 109 Carbon Dioxide 19 BUN 19 Creatinine 1.44 H Glucose 129 H Calcium 8.5 L Liver Function 02/25/17 Range/Units 06:01 Total Bilirubin 0.8 (0.2-1.2) mg/dL AST 26 (5-34) Units/L ALT 19 (0-55) Units/L Alkaline Phosphatase 79 (38-126) Units/L Albumin 3.3 L (3.5-5.0) g/dL - ABG Interpretation ABG results: PT/INR, D-dimer PT 9.9 Seconds (9.4-12.1) 02/23/17 11:20 - Impressions Impressions Echocardiogram 02/24/17 11:00 Impressions: Technically challenging study with suboptimal windows. Overall, LV systolic function appears low normal to mildly reduced. There are possibly wall motion abnormalities in the basal inferior wall. Recommend repeat limited study with Definity. RV size and function appear normal. No significant valvular dysfunction. No pulmonary hypertension. Left Ventricular Wall Motion: Rest Echo Findings The basal inferior and basal inferior septal carranza were hypokinetic. The mid anterior septal, mid inferior lateral, basal anterior septal and basal inferior lateral carranza were not visualized. Findings: Study Quality * Technically challenging study with suboptimal windows. ECG Findings * Normal sinus rhythm. Aorta * Not well visualized. Aortic Valve * No aortic regurgitation. * Aortic valve not well visualized. * No aortic stenosis. Mitral Valve * Normal mitral valve structure. * No mitral stenosis. * Trace mitral regurgitation. Tricuspid Valve * Tricuspid valve not well visualized. * Trace tricuspid regurgitation. * Estimated RA pressure is 3 mmHg. * Estimated RVSP is 19 mmHg. * No pulmonary hypertension. Pulmonic Valve * Pulmonic valve is not well visualized. * No pulmonic stenosis. * No pulmonic regurgitation. Pulmonary Artery * Pulmonary artery not well visualized. Left Ventricle * Unable to evaluate all wall segments. * Mild left ventricular diastolic dysfunction. * Low normal to mildly reduced LV EF. Right Ventricle * Normal right ventricular structure and function. Left Atrium * Normal left atrial size. Right Atrium * Normal right atrial size. Pericardium * There is no pericardial effusion present. Interatrial Septum * No evidence of PFO by color Doppler. IVC * Normal IVC dimensions and inspiratory collapse. Consult Discharge Plan - Plan Referrals: Richie Retana MD [Primary Care Provider] - 03/04/17 1:00 pm
[2017-02-25] MEDS ORDERED: Haloperidol Lactate 5 MG/ML VIAL ONE (17:05)
[2017-02-25] MEDS ORDERED: *HR* Atropine Sulfate 1 MG/10 ML SYRINGE ONE ×2 (17:27→22:52)
[2017-02-25] MEDS ORDERED: *HR* Morphine 2 MG/ML SYRINGE IVP PRN (17:28)
[2017-02-25] MEDS ORDERED: Ondansetron 4 MG/2 ML VIAL IVP PRN (17:28)
[2017-02-25] MEDS ORDERED: *HR* OxyCODONE/APAP 5/325 TABLET PO PRN (17:28)
--- NOTE | 2017-02-25 17:31 | Event Note ---
Date of Encounter: 02/25/17 Time of Encounter: 17:30 - Cardiology Event Note LHC with normal EF and inferoapical WMA and 95% long mid RCA stenosis sp BMS x 1. Otherwise minimal disease. Patient had no issues until after intervention was completed with complaint of significant chest discomfort and diaphoresis unresolved with NTG. Brought back for relook - all coronaries were same with patent stent.
--- NOTE | 2017-02-25 21:02 | Invasive Diagnostic Lab ---
Name: Al Walker Date of Study: 02/25/2017 Date: 1930 Ht: 185.0 cm /72.8 in Medical Record#: [id number] Age: 86 Wt: 86. kg / 189.60 lb Account/Order#: [id number] Gender: Male BSA: 2.1 Order #: [id number] Fluoro Dose: 333 mGy BMI: 25.13 Procedure Physician: Rene Grijalva MD, [facility] Referring MD: Referring MD: Procedures Performed: Transradial LEFT HEART CATH and Stent w/ PTCA Single Major Vessel Indications: Non-Stemi Impressions: There is severe one vessel coronary artery disease. The left ventricle is normal and has normal contractility EF 50% Patient had successful PTCA/Bare Metal Stent placement in the mid RCA. Plan for renal mass intervention Recommendations: Optimal medical therapy of patient's disease. Aggressive risk factor modification. Patient being referred for cardiac rehab. History/Risk Factors: ckd aortic aneurysm Hypertension Dyslipidemia Current/Recent Smoker Chronic Lung Disease Procedure Access obtained in the right Radial artery by percutaneous puncture Patient had successful PTCA/Bare Metal Stent placement in the mid RCA. Complications: None Contrast: Isovue 94ml Closure Device: Mechanical Compression Hemodynamics: Pressures Site Systolic/ A Wave Diastolic/ V Wave End Diastolic/ Mean HR AO 105 66 84 83 LV 137 21 38 86 LV 157 19 23 88 AO 155 83 114 88 AO 156 104 129 86 LV Ventriculography Ejection Method: LV Gram Ejection Fraction: 50% Wall Motion: DAWKINS Anterobasal Normal Anterolateral Normal Apical: Normal Inferoapical Severe Hypokinesis Inferobasal Normal Coronary Dominance: right Lesion Findings/Interventions * Left Main Coronary Artery The LMCA is angiographically free of disease. * Left Anterior Descending There is a 20% stenosis in the Mid LAD. There is a 50% stenosis in the 1st Diagonal. * Circumflex There is a 30% stenosis in the Mid Circumflex. 50% stenosis in the distal OM. * Right Coronary Artery There is a 32 mm long, 95% stenosis in the Mid RCA. The lesion has a KERRI flow of 2 and has no thrombus present. An intervention was performed on the Mid RCA with a final stenosis of 0%. There were no lesion complications. The final KERRI flow was 3. Distal RCA 40% Interventional Device(s) Vessel Segment Type Name Diameter (mm) Length (mm) Mid RCA Balloon Emerge Monorail 2.5 20 Mid RCA Bare Metal Stent Rebel [place] [employer] 3.5 32 Mid RCA Balloon [place] Emerge 4.5 20 Updated by Madisyn Greene, RT (R) on 02/25/2017 4:27:43 PM Rene Grijalva MD, FACC electronically signed on 02/25/2017 8:55:28 PM with status of Final
[2017-02-25] MEDS: Famotidine 20 MG TABLET PO SCH (23:30)
[2017-02-25] MEDS: Mirtazapine 15 MG TABLET PO SCH (23:30)
[2017-02-25] MEDS: *HR* Acetylcysteine 20% 600 MG/3 ML ORAL SYRINGE PO SCH (23:31)
[2017-02-26 05:48] LABS: Albumin 3.3 g/dL (3.5-5.0); Albumin/Globulin Ratio 1.1 (1.1-2.2); Bilirubin,Total 0.9 mg/dL (0.2-1.2); Calcium 8.3 mg/dL (8.6-10.8); Globulin 3.1 g/dL (2.4-3.5); Magnesium 1.7 mg/dL (1.6-2.6); Phosphorous 2.8 mg/dL (2.3-4.7); Potassium 4.2 mEq/L (3.5-4.5); Total Protein 6.4 g/dL (6.0-8.3)
[2017-02-26] MEDS: Aspirin 81 MG TAB.CHEW PO SCH (08:23)
--- NOTE | 2017-02-26 08:26 | Cardiology Progress Note ---
Date of Encounter: 02/26/17 Time of Encounter: 08:23 Assessment and Plan (1) NSTEMI (non-ST elevated myocardial infarction) Current Visit: Yes Status: Acute Patient had LHC which revealed 95% stenosis of the RCA. Patient had BMS placed. Recommendations: Continue ASA, and plavix. Patient will need to have DAPT at least a month before interruption but would recommend continuing for at least a year if patient tolerates (CREDO trial). Patient will need to be on aspirin indefinitely. Continue beta aline. Recommend increasing dose of lipitor to high intesity dose ( at least 40 mg per day). Patietn will need follow up with cardiology in 5-7 days post discharge. (2) Coronary artery disease Current Visit: Yes Status: Acute continue ASA and plavix recommend increasing statin to 40 mg daily. Qualifiers: Qualified Code(s): I25.10 - Atherosclerotic heart disease of [place] coronary artery without angina pectoris (3) CKD (chronic kidney disease) stage 3, GFR 30-59 ml/min Current Visit: Yes Status: Chronic as stated above. Scr mildly increased today. (4) Renal mass Current Visit: Yes Status: Chronic Ct scan of the abdomen from 09/28/16 reveals: "Heterogeneously enhancing lesions again identified along the anterior aspect of the right kidney which measures approximately 6.2 x 6.4 cm. As described on prior exam this lesion was smaller on prior study dated September 06, 2007. Given the enhancing component of the lesion remains indeterminate and renal cell carcinoma cannot be excluded. " management per primary team. appreciate nephrologies input. (5) Former smoker Current Visit: Yes Status: Acute patient smoked 69 years and has quit 4 years ago. (6) Hyperlipidemia Current Visit: Yes Status: Acute Patient has known CAD. Recommend increasing to high intensity dosage. Qualifiers: Qualified Code(s): E78.5 - Hyperlipidemia, unspecified (7) Hypertension Current Visit: Yes Status: Acute currently well controlled. Qualifiers: Qualified Code(s): I10 - Essential (primary) hypertension Discussion w patient/family: The assessment and plan as outlined above was discussed with the patient and/or family members who expressed understanding and agreement. All questions were answered. Thank you for involving us in the care of your patient. Please call with any questions. Subjective Principal diagnosis: NSTEMI Interval history: Patient had LHC yesterday with BMS placed to the RCA. He had chest pain and diaphoresis afte the procedure that did not resolved with NTG. He was taken back to the analytical lab technician and all coronaries were the same and the stent was patent. This morning Mr. Walker states that he has had no further chest pain since that event. He denies any dyspnea, focal motor or sensory defecit. He denies any pain or swelling from the insertion site. He has no further complaints or concerns at this time. Objective Temp Pulse BP Pulse Ox 02/26/17 04:30 99.1 F 77 111/64 99 General: Conversant, No Apparent Distress, Other (lying in bed and appears comfortable. ) HEENT: Atraumatic, Normocephaly, Mucus Membranes Moist, Other (poor dentition) Neck: No JVD, Normal carotid pulses Cardiac: Reg Rate and Rhythm, Normal S1 and S2, No Murmur Lungs: Normal Breath Sounds, No Wheeze, Rales, Rhonchi, Other (normal effort of breathing and converses in full sentences. ) Neuro: Alert and responsive, No focal deficits noted Abdomen: Soft, Non-Tender Skin: No rashes noted on visualized skin, Other (The insetion site of the right femoral has some echymosis. Appears to have a small hematoma. It is clean and well dressed at this time. ) Musculoskeletal: No Chest Wall Tenderness Extremities: No Clubbing, No Cyanosis, No Edema, Normal Pulses Results 02/24/17 00:53 02/26/17 04:31 Lab Results 02/25/17 02/26/17 12:22 04:31 APTT 74.7 H Sodium 141 Potassium 4.2 Chloride 111 H Carbon Dioxide 23 BUN 23 Creatinine 1.50 H Glucose 123 H Calcium 8.3 L Magnesium 1.7 Total Bilirubin 0.9 AST 55 H ALT 23 Alkaline Phosphatase 69 Consult Discharge Plan - Plan Referrals: Rene Grijalva MD [Partnered Physician] - (cardiology office will call patient at home with follow up appointment.) Richie Retana MD [Primary Care Provider] - 03/04/17 1:00 pm
--- NOTE | 2017-02-26 08:58 | Nephrology Progress Note ---
Date of Encounter: 02/26/17 Time of Encounter: 08:56 - Assessment and Plan (1) CKD (chronic kidney disease) stage 3, GFR 30-59 ml/min Current Visit: Yes Status: Chronic Kidney function stable status post heart cath Continue Mucomyst as ordered Continue to monitor kidney function closely (2) NSTEMI (non-ST elevated myocardial infarction) Current Visit: Yes Status: Acute per cardiology team (3) Renal mass Current Visit: Yes Status: Chronic Needs f/u with urology, could potentially be addressed as an outpatient Subjective Principal diagnosis: NSTEMI Interval history: Patient seen and examined. Sitting on side of bed; states he is tired, a little confused, and feels like he is being "chang"...just wants to get dressed. Objective - Vital Signs Vital signs: Vital Signs Temp Pulse Pulse Resp BP Pulse Ox 02/26/17 08:25 98.0 F 95 19 104/66 97 02/26/17 04:30 99.1 F 77 111/64 99 02/26/17 03:00 80 106/58 94 02/26/17 02:00 86 100/58 96 02/26/17 01:00 89 160/48 98 02/26/17 00:30 91 107/57 96 02/26/17 00:25 98.8 F 87 19 111/62 97 02/26/17 00:00 97 126/70 95 02/25/17 23:45 105 118/62 96 02/25/17 23:30 106 111/36 94 02/25/17 23:24 106 106 115/66 95 02/25/17 23:15 113/62 96 02/25/17 23:10 99 114/71 96 02/25/17 23:05 101 15 116/61 97 02/25/17 23:00 99 15 127/67 97 02/25/17 22:45 102 131/64 02/25/17 21:45 100 126/78 95 02/25/17 20:45 98 126/74 02/25/17 20:15 97 121/69 98 02/25/17 19:45 95 131/75 98 02/25/17 19:34 98.3 F 95 16 130/68 97 02/25/17 19:30 96 130/68 100 02/25/17 19:15 95 128/66 100 02/25/17 19:05 94 94 140/69 98 02/25/17 19:00 94 140/69 100 02/25/17 18:55 95 119/72 98 02/25/17 18:50 94 18 119/72 98 02/25/17 11:00 98 F 70 18 116/77 96 Intake and Output 02/25/17 02/26/17 02/26/17 23:59 07:59 15:59 Intake Total 0 / 0 0 / 0 Output Total 550 / 550 150 / 150 300 / 300 Balance -550 / -550 -150 / -150 -300 / -300 Intake: Oral 0 / 0 0 / 0 Output: Urine 550 / 550 150 / 150 300 / 300 Other: Weight 82.2 kg Patient Weight 02/26/17 23:59 Weight 82.2 kg - General Appearance General appearance: Present: well-developed, well-nourished EENT: Present: ATNC, mucous membranes moist, vision intact, hearing diminished Neck: Present: supple Cardiology: Present: regular rate Gastrointestinal: Present: no tenderness, no guarding Integumentary: Present: warm and dry Neurologic: Present: alert and oriented x3 Psychiatric: Present: agitated (mildly) - Lab 02/24/17 00:53 02/26/17 04:31 Most recent lab results Calcium 8.3 mg/dL (8.6-10.8) L 02/26/17 04:31 Phosphorus 2.8 mg/dL (2.3-4.7) 02/26/17 04:31 Magnesium 1.7 mg/dL (1.6-2.6) 02/26/17 04:31 Consult Discharge Plan - Plan Referrals: Rene Grijalva MD [Partnered Physician] - (cardiology office will call patient at home with follow up appointment.) Richie Retana MD [Primary Care Provider] - 03/04/17 1:00 pm
[2017-02-26] MEDS: *HR* Acetylcysteine 20% 600 MG/3 ML ORAL SYRINGE PO SCH ×2 (09:56→21:15)
[2017-02-26] MEDS: 0.9 % Sodium Chloride 1,000 ML IVC SCH (13:05)
--- NOTE | 2017-02-26 16:23 | Internal Med Progress Note ---
Date of Encounter: 02/26/17 Time of Encounter: 16:20 - Assessment and plan (1) Coronary artery disease Current Visit: Yes Status: Acute Assessment and plan: s/p LHC with RCA BMS Cont ASA, Plavix, Statin and Metoprolol Cont close monitoring Qualifiers: Qualified Code(s): I25.10 - Atherosclerotic heart disease of [place] coronary artery without angina pectoris (2) NSTEMI (non-ST elevated myocardial infarction) Current Visit: Yes Status: Acute Assessment and plan: s/p LHC with RCA BMS (3) SOB (shortness of breath) Current Visit: Yes Status: Acute Assessment and plan: Will get CXR d/c IV fluids started him on Duoneb (4) Acute delirium Current Visit: Yes Status: Acute Assessment and plan: Mostly hospital induced Cont close monitoring with fall precautions If pt persistently confused will get CT of Head avoid any narcotic / BZD and sedatives (5) Hypertension Current Visit: Yes Status: Chronic Assessment and plan: stable with current med Qualifiers: Hypertension type: essential hypertension Qualified Code(s): I10 - Essential (primary) hypertension (6) Hyperlipidemia Current Visit: Yes Status: Acute Assessment and plan: Inc Lipitor to 20mg QHS Qualifiers: Hyperlipidemia type: unspecified Qualified Code(s): E78.5 - Hyperlipidemia , unspecified (7) CKD (chronic kidney disease) stage 3, GFR 30-59 ml/min Current Visit: Yes Status: Chronic Assessment and plan: Stable Cr. Received 2 days of IV fluids due to crackles in the lungs d/c IVF now cont Mucormyst Q12hr x 2 days (8) DVT prophylaxis Current Visit: Yes Status: Acute Assessment and plan: on SCD's - Subjective Interval history: Mr. Walker is a 86 year old male with history of hypertension, hyperlipidemia , chronic kidney disease, abdominal aortic aneurysm status post remote repair, COPD who presented to the emergency department today with complaints of chest pain. Patient reports that he was visiting his in the hospital today and when he got to her room he experienced sharp shooting pain down his left arm. Pt was admitted in the hospital for NSTEMI and went for LHC y/d. Pt had 95 % stenosis of RCA had BMS placed in. Apparently pt became diaphoretic and c/o CP after cath, so he had another look in the soap slabber all coronaries were same with patent stent. Pt seems to be little confused today. He is alert, awake and Oriented to self only. Denied any CP. Does have SOB and JAQUEZ - Constitutional Vitals: Temp Pulse Resp BP Pulse Ox 97.5 F L 59 16 98/55 98 02/26/17 10:57 02/26/17 15:18 02/26/17 10:57 02/26/17 10:57 02/26/17 10:57 General appearance: Present: A&O X 1, mild distress, pleasant - Head Head exam: Present: atraumatic, normal inspection - Neck Neck exam general surgery: Present: supple - Respiratory Respiratory exam: Present: decreased breath sounds, respiratory distress (mild) , wheezes, tachypnea. Absent: rales, rhonchi - Cardiovascular Cardiovascular exam: Present: RRR, +S1, +S2. Absent: systolic murmur - GI/Abdominal GI/Abdominal exam: Present: distended, soft. Absent: tenderness - Extremities Exam Extremities exam: Absent: calf tenderness, pedal edema, tenderness - Neurological Exam Neurological exam: Present: altered Internal Medicine: Result - Labs CBC & Chem 7: 02/24/17 00:53 02/26/17 04:31 Labs: BMP 02/26/17 04:31 Sodium 141 Potassium 4.2 Chloride 111 H Carbon Dioxide 23 BUN 23 Creatinine 1.50 H Glucose 123 H Calcium 8.3 L Liver Function 02/26/17 Range/Units 04:31 Total Bilirubin 0.9 (0.2-1.2) mg/dL AST 55 H (5-34) Units/L ALT 23 (0-55) Units/L Alkaline Phosphatase 69 (38-126) Units/L Albumin 3.3 L (3.5-5.0) g/dL - ABG Interpretation ABG results: PT/INR, D-dimer PT 9.9 Seconds (9.4-12.1) 02/23/17 11:20 Consult Discharge Plan - Plan Referrals: Rene Grijalva MD [Partnered Physician] - (cardiology office will call patient at home with follow up appointment.) Richie Retana MD [Primary Care Provider] - 03/04/17 1:00 pm
[2017-02-26] MEDS: Ipratropium/Albuterol Neb 3 ML IH SCH ×2 (20:40→23:23)
[2017-02-26] MEDS: Famotidine 20 MG TABLET PO SCH (21:15)
[2017-02-26] MEDS: Mirtazapine 15 MG TABLET PO SCH (21:16)
[2017-02-27] MEDS: Ipratropium/Albuterol Neb 3 ML IH SCH ×3 (04:27→11:16)
[2017-02-27 06:39] LABS: Albumin 3.2 g/dL (3.5-5.0); Albumin/Globulin Ratio 1.1 (1.1-2.2); Bilirubin,Total 0.9 mg/dL (0.2-1.2); Calcium 8.6 mg/dL (8.6-10.8); Globulin 2.8 g/dL (2.4-3.5); Magnesium 1.6 mg/dL (1.6-2.6); Potassium 4.3 mEq/L (3.5-4.5)
[2017-02-27 07:11] VITALS: BP 124/64
[2017-02-27] MEDS: Aspirin 81 MG TAB.CHEW PO SCH (07:32)
[2017-02-27 08:14] LABS: Basophils # 0.1 K/mcL (0.0-0.2); Eosinophils # 0.1 K/mcL (0.0-0.6); Hemoglobin 9.6 g/dL (12.9-16.9); Immature Granulocytes % 0.5 % (0-4); Immature Platelets 6.9 % (1.1-6.1); Lymphocytes % 15.1 %; Mean Corpuscular Hemoglobin 27.7 pg (28.0-33.3); Mean Corpuscular Volume 89.6 fL (83.0-100.0); Mean Platelet Volume 10.7 fL (9.4-12.4); Monocytes # 1.1 K/mcL (0.0-1.3); Monocytes % 17.1 %; Neutrophils # 4.1 K/mcL (1.6-8.9); Platelet Count 174 K/mcL (140-400); Red Blood Count 3.46 M/mcL (4.19-5.50); Red Cell Distribution Width 17.2 % (11.5-14.5); Segmented Neutrophils % 65.3 %
--- NOTE | 2017-02-27 11:02 | Discharge Summary ---
Date of Encounter: 02/27/17 Time of Encounter: 10:56 - Discharge Diagnosis (1) Coronary artery disease Priority: Primary Status: Acute Qualifiers: Qualified Code(s): I25.10 - Atherosclerotic heart disease of [place] coronary artery without angina pectoris (2) NSTEMI (non-ST elevated myocardial infarction) Priority: Primary Status: Acute (3) SOB (shortness of breath) Priority: Secondary Status: Resolved (4) Acute delirium Priority: Secondary Status: Resolved (5) Hypertension Priority: Secondary Status: Chronic Qualifiers: Hypertension type: essential hypertension Qualified Code(s): I10 - Essential (primary) hypertension (6) Hyperlipidemia Priority: Secondary Status: Acute Qualifiers: Hyperlipidemia type: unspecified Qualified Code(s): E78.5 - Hyperlipidemia , unspecified (7) CKD (chronic kidney disease) stage 3, GFR 30-59 ml/min Priority: Secondary Status: Chronic - Discharge Medications Prescriptions: Aspirin 81 mg PO DAILY #30 Clopidogrel [Plavix] 75 mg PO DAILY #30 tab Metoprolol [Lopressor] 25 mg PO BID #60 tab Home Medications: Alendronate Sodium 70 mg PO QWEEK 09/28/16 [History] Cholecalciferol (Vitamin D3) [Vitamin D] 2,000 unit PO DAILY 09/28/16 [History] Dexlansoprazole [Dexilant] 60 mg PO DAILY 09/28/16 [History] Lisinopril [Zestril] 10 mg PO DAILY 09/28/16 [History] Lovastatin 40 mg PO DAILY 09/28/16 [History] Mirtazapine [Remeron] 15 mg PO HS 09/28/16 [History] Multivits,Ca,Min/Iron/FA/Lycop [Centrum Men's Tablet] 2 tab PO DAILY 09/28/16 [ History] [place]mann-3/Dha/Epa/Fish Oil [Fish Oil 1,000 mg Softgel] 1,000 mg PO BID 09/28/16 [ History] Ranitidine HCl [Acid [employer] Instructor] 150 mg PO BID 09/28/16 [History] Aspirin 81 mg PO DAILY #30 02/27/17 [Rx] Clopidogrel [Plavix] 75 mg PO DAILY #30 tab 02/27/17 [Rx] Metoprolol [Lopressor] 25 mg PO BID #60 tab 02/27/17 [Rx] Allergies/Adverse Reactions: Allergies acetaminophen [From Percocet] Allergy (Verified 09/28/16 17:16) Rash Oxycodone [From Percocet] Allergy (Verified 09/28/16 17:16) Rash Procedures/tests Complete & Pending: Procedures Performed prior 72 hours Category Date Time Status CL Cardiac Catheterization [CL] Routine Network Program Manager 02/25/17 16:45 Ordered Left Heart Cath [CL Cardiac Catheterization] [CL] Network Program Manager 02/25/17 09:40 Completed Routine ECG 12 lead ECG [ECG] Routine Y 02/25/17 16:39 Completed EV echocardiogram Routine Y 02/24/17 11:00 Completed Date of admission: 02/23/17 17:00 Primary care physician: Richie Retana MD Consults: 02/23/17 19:27 Consult to Cardiology [CONS] Routine Comment: Consulting Provider: Marianne Barger Reason for Consult: NSTEMI Call Completed: Yes 02/24/17 15:06 Consult to Cardiac Rehabilitation-Phase1 [CONS] Routine Comment: Reason for Consult: NSTEMI Call Completed: No 02/24/17 15:20 Consult to Nephrology [CONS] Routine Consulting Provider: Hina Turner Reason for Consult: decrease in kidney function Time Notified: 15:20 Call Completed: No - Patient Status Disposition: Home, Self-Care Condition: Good Overall status at discharge: patient is back to baseline - Discharge Instructions Follow Up With: Rene Grijalva MD [Partnered Physician] - (cardiology office will call patient at home with follow up appointment.) Richie Retana MD [Primary Care Provider] - 03/04/17 1:00 pm Additional Instructions: f/u with PCP in one week f/u with [facility] Person in 1-2 weeks f/u with Certified Hearing Instrument Dispenser in 1-2 weeks Please take both Aspirin and Plavix. If you notice any signs of GI bleeding, call your care management assistant right away and go to nearest ER [facility] - Diet and Activity Activity: increase activity as tolerated Diet: low salt diet Hospital course: Mr. Walker is a 86 year old male with history of hypertension, hyperlipidemia , chronic kidney disease, abdominal aortic aneurysm status post remote repair, COPD who presented to the emergency department today with complaints of chest pain. Patient reports that he was visiting his in the hospital today and when he got to her room he experienced sharp shooting pain down his left arm. Pt was admitted in the hospital for NSTEMI and went for [facility] 02/25/17. Pt had 95 % stenosis of RCA had BMS placed in. Apparently pt became diaphoretic and c/o CP after cath, so he had another look in the lab scientist all coronaries were same with patent stent. Yesterday pt was little confused could due to staying in the hospital. Now he is more alert, awkae and O x3. Denied any more CP / SOB. Tolerating PO intake well. Breathing comfortably on RA. - Time Spent with Patient Total time spent providing and/or coordinating discharge services: - Constitutional Vitals: Temp Pulse Resp BP Pulse Ox 97.8 F 96 22 124/64 94 02/27/17 07:09 02/27/17 07:33 02/27/17 07:09 02/27/17 07:09 02/27/17 07:09 General appearance: Present: A&O X 3, pleasant, answers questions appropriately - Head Head exam: Present: atraumatic, normal inspection - Respiratory Respiratory exam: Present: decreased breath sounds. Absent: respiratory distress, rhonchi, wheezes - Cardiovascular Cardiovascular exam: Present: RRR, +S1, +S2. Absent: diastolic murmur, gallop, rubs, systolic murmur - GI/Abdominal GI/Abdominal exam: Present: normal bowel sounds, soft, no peritoneal signs. Absent: distended, tenderness - Extremities Exam Extremities exam: Absent: calf tenderness, pedal edema, tenderness - Neurological Exam Neurological exam: Present: alert, oriented X3 - Psychiatric Psychiatric exam: Present: normal affect, normal mood
--- NOTE | 2017-02-27 11:34 | Electrocardiograph Report ---
[place] [id number] Test Date: 2017-02-25 Pat Name: [facility] Department: 106 Room: 05 Gender: M [employer] Valuer: : [id number] Requested By: Nya Hirsch Order Number: [id number] Reading MD: Al Lujan Measurements Intervals [place] Rate: 81 P: VA: 0 QRS: -47 QRSD: 110 T: 78 QT: 364 QTc: 401 Interpretive Statements SUPRAVENTRICULAR RHYTHM MARKED LEFT AXIS DEVIATION NONSPECIFIC ST & T-WAVE ABNORMALITY SIGNIFICANT ARTIFACT Electronically Signed On 02-27-2017 11:32:54 EDT by Al Lujan
--- NOTE | 2017-03-02 15:22 | Invasive Diagnostic Lab Proc ---
Name: Al Walker Date of Study: 02/25/2017 Date: 1930 Ht: 72.0in Medical Record#: [id number] Age: 86 Wt: 189.38lb Gender: Male BSA: 2.08 Order #: [id number] BMI: 25.68 Physicians Procedure Physician: Rene Grijalva MD, [facility] Referring MD: Referring MD: Staff Name Position Time In Elpidio Purdy RN Elementary Assistant Teacher 03:19 PM dAriana Valle RN Elementary Assistant Teacher 03:19 PM Coby Bailey RN Monitor 03:19 PM Madisyn Greene RT (R) 03:19 PM Madisyn Lui RT (R) Scrub 03:19 PM Indications Indication Non-Stemi Procedures Performed Procedure L HRT ARTERY/VENTRICLE ANGIO PRQ CARD BM STENT W/ANGIO 1 VSL Pre-Procedure Checklist Informed consent is complete signed and on chart. H&P is on chart. ID band is on and ID verified with patient. Patient NPO for procedure The procedure was described for the patient and questions were answered. Blood Pressure: 161/92 ECG is on chart. Rhythm: NSR Plan of Care Patient will tolerate the procedure without complications. Adequate level of comfort will be maintained. Hemodynamics will remain stable Patient will recover from procedure without complications. Respiratory function will be maintained. Cardiac rhythm will remain stable. Patient temperature will be maintained. Patient and/or family have verbalized understanding of the procedure. Patient Education Intravenous Access Time IV Size Location DC'd Fluid/Drip Rate Units RN 18g 1 /" Patent On Arrival Lt Antecubital 0.9NaCl 25 ml/hr Elpidio Purdy RN Allergies Oxycodone acetaminophen Dexlansoprazole Vital Signs Time BP (mmHg) HR (bpm) O2 Sat. RR (bpm) LOC 161 / 92 94 94 % 16 5 = Fully awake and oriented or at pre-proc level 03:21 PM / % 5 = Fully awake and oriented or at pre-proc level 03:21 PM / % 4 = Oriented but drowsy 04:01 PM 153 / 90 % 04:06 PM 138 / 81 86 % 26 04:09 PM 146 / 87 % 04:11 PM 142 / 66 % 04:37 PM 122 / 59 % 04:42 PM 127 / 77 104 94 % 22 04:47 PM 144 / 80 91 100 % 23 04:53 PM 152 / 81 87 94 % 14 04:55 PM 162 / 91 90 96 % 13 05:00 PM 154 / 96 88 100 % 15 05:05 PM 71 / 48 85 95 % 21 03:22 PM 185 / 98 94 98 % 34 03:26 PM 165 / 90 81 99 % 27 03:31 PM 156 / 88 81 99 % 23 03:36 PM 142 / 67 83 100 % 21 03:41 PM 146 / 81 73 95 % 25 03:46 PM 160 / 87 84 100 % 21 03:51 PM 173 / 103 87 99 % 21 03:56 PM 170 / 104 89 100 % 20 05:06 PM 126 / 94 84 100 % 24 05:11 PM 94 / 55 87 87 % 22 05:15 PM 105 / 60 87 90 % 18 05:30 PM 100 / 67 89 % 18 4 = Oriented but drowsy 05:45 PM 102 / 68 90 % 18 4 = Oriented but drowsy 06:04 PM 133 / 75 93 94 % 16 4 = Oriented but drowsy 06:14 PM 143 / 80 93 95 % 16 4 = Oriented but drowsy Procedural Medications Time Medication Dose Units Method Given By 03:20 PM Oxygen 2 L/min nasal cannula Elpidio Purdy RN 03:22 PM Versed 2 mg Intravenous Elpidio Purdy RN 03:22 PM Fentanyl 50 mcg Intravenous Elpidio Purdy RN 03:33 PM Lidocaine 2% 0.5 ml Subcutaneous Rene Grijalva MD, FACC 03:33 PM Heparin 2000 units Nitroglycerin 200 mcg Verapamil 2.5 mg Intraarterial Rene Grijalva MD, FACC 03:51 PM Nitroglycerin 200 mcg Intracoronary Rene Grijalva MD 03:54 PM Hydralazine 10 mg Intravenous Elpidio Purdy RN 03:58 PM Hydralazine 10 mg Intravenous Elpidio Purdy RN 03:58 PM Plavix 300 mg Orally Elpidio Purdy RN 04:05 PM Fentanyl 50 mcg Intravenous Elpidio Purdy RN 04:09 PM Nitroglycerin 10 mcg/min Intravenous Elpidio Purdy RN 04:48 PM Zofran 4 mg Intravenous Adriana Valle RN 04:49 PM Versed 2 mg Intravenous Elpidio Purdy RN 04:49 PM Fentanyl 50 mcg Intravenous Elpidio Purdy RN 05:06 PM Haldol 2.5 mg Intravenous Elpidio Purdy RN ASA Classification: CLASS II- Mild systemic disease (i.e. well-controlled diabetes, hypertension, asthma, cigarette smoking) Elana Score Preprocedure Postprocedure Activity 2- Moves 4 extremities sustained head lift Activity 2- Moves 4 extremities sustained head lift Circulation 2- SBP +/= 20 points of pre-anesthetic level Circulation 2- SBP +/= 20 points of pre-anesthetic level Consciousness 2- Awake and alert oriented x 3 Consciousness 2- Awake and alert oriented x 3 O2 Saturation 2- Able to maintain O2 satruation of 92% on room air O2 Saturation 2- Able to maintain O2 satruation of 92% on room air Respiratory 2- Able to deep breathe and cough well Respiratory 2- Able to deep breathe and cough well Total Score 10 Total Score 10 Contrast Agent: Isovue Diagnostic Contrast: 38 ml Total Contrast: 38 ml Fluoro Dose: 174 mGy Activated Clotting Time Time Seconds to Clot 03:57 PM 303 Procedure Log Time Note Enter By 03:11 PM CathStat 03:11 PM Case Start 03:18 PM Pt arrived to lab[employer] 2 at 15:18 [email or web address] 03:18 PM Physician arrived 15:18 [email or web address] 03:18 PM ASA Class CLASS II- Mild systemic disease (i.e. well-controlled diabetes, hypertension, asthma, cigarette smoking) [email or web address] 03:19 PM Jenaro and greet completed [email or web address] 03:19 PM Sign in performed according to hospital policy. [email or web address] 03:19 PM Procedure start 15:19 [email or web address] 03:19 PM Patient charges- Angio tray pack, Navilyst 3mm J, Pulse Oximetry and ACIST tubing and transducer [email or web address] 03:19 PM Elpidio Purdy RN Position: Elementary Assistant Teacher Time in: 15:19 [email or web address] 03:19 PM Adriana Valle RN Position: Elementary Assistant Teacher Time in: 15:19 [email or web address] 03:19 PM Coby Bailey RN Position: Monitor Time in: 15:19 [email or web address] 03:19 PM Madisyn Greene RT (R) Position: Time in: 15:19 [email or web address] 03:19 PM Madisyn Lui (R) Position: Scrub Time in: 15:19 [email or web address] 03:19 PM Hair removed from procedure site in procedure lab using clippers. Right wrist prepped with Chloraprep by Madisyn Lui RT (R), safety strap applied then patient was draped. Skin intact. [email or web address] 03:20 PM Hair removed from procedure site in procedure lab using clippers. Right groin prepped with Chloraprep by Madisyn Lui RT (R), safety strap applied then patient was draped. Skin intact. [email or web address] 03:20 PM Recorded ECG: HR=97 Condition=Condition 1 03:20 PM Vitals capture started with the following parameters, Patient=Adult, Interval=5 min, Initial Edtjmrkn=449 mmHg, Deflation Rate=5 mmHg, Cuff placed on Right Arm 03:20 PM Time: 15:20 Oxygen on at 2 L/min per nasal cannula by Elpidio Purdy RN [email or web address] 03:21 PM Time: 15:20 Patient comfortable and pain free: Yes [email or web address] 03:21 PM Time: 15:21LOC: 5 = Fully awake and oriented or at pre-proc level [email or web address] 03:21 PM Clinical Presentation: Non-STEMI [email or web address] 03:22 PM HR=94 bpm, TQPM=284/98 mmhg, SpO2=98.0 %, Resp=34 B/min, Comment=NSR 03:22 PM Time: 15:22 Versed 2 mg Intravenous Given by Elpidio Purdy RN [email or web address] 03:22 PM Time: 15:22 Fentanyl 50 mcg Intravenous Given by Elpidio Purdy RN [email or web address] 03:26 PM HR=81 bpm, QAQI=633/90 mmhg, SpO2=99.0 %, Resp=27 B/min, Comment=NSR 03:31 PM HR=81 bpm, ECIB=257/88 mmhg, SpO2=99.0 %, Resp=23 B/min, Comment=NSR 03:31 PM Time out performed according to hospital policy [email or web address] 03:33 PM Pressure channel 1 zeroed. 03:33 PM Time: 15:33 0.5 ml Lidocaine 2% to right radial Subcutaneous Given by Rene Grijalva MD, [email or web address] 03:33 PM Access obtained by percutaneous puncture. 6Fr 10cm Terumo Glidesheath sheath placed in right Radial artery. [id number] [email or web address] 03:34 PM Time: 15:33 Patient given 2,000 units Heparin, 200 mcg Nitroglycerin, and 2.5 mg Verapamil Intraarterial by Rene Grijalva MD, FAC [email or web address] 03:34 PM 5Fr TIG catheter inserted over the wire DNC [email or web address] 03:35 PM 0.035 260cm Navilyst 3mmJ wire [id number] [email or web address] 03:35 PM unable to advance wire. [email or web address] 03:35 PM Wire removed [email or web address] 03:36 PM 0.035 150cm VSI Ori-Torque wire [id number] [email or web address] 03:36 PM Time: 15:21LOC: 4 = Oriented but drowsy [email or web address] 03:36 PM Time: 15:21 Patient comfortable and pain free: Yes [email or web address] 03:36 PM HR=83 bpm, UMAD=571/67 mmhg, BzO9=881.0 %, Resp=21 B/min, Comment=NSR 03:36 PM Wire removed [email or web address] 03:36 PM LCA angiography performed in multiple views. [email or web address] 03:36 PM Recorded Pressure: Ao, HR=83, Condition=Condition 1 (Aorta) Ao 105/66/84 03:37 PM Lesion found in Mid LAD. Pre Stenosis: 20 Pre KERRI Flow: [email or web address] 03:38 PM Lesion found in 1st Diagonal. Pre Stenosis: 50 Pre KERRI Flow: [email or web address] 03:38 PM Lesion found in Mid Circumflex. Pre Stenosis: 30 Pre KERRI Flow: [email or web address] 03:39 PM Coronary Dominance: right [email or web address] 03:39 PM RCA angiography performed in multiple views. [email or web address] 03:39 PM Catheter removed [email or web address] 03:39 PM Lesion found in Mid RCA. Pre Stenosis: 95 Pre KERRI Flow: [email or web address] 03:40 PM Pressure channel 1 zeroed. 03:40 PM Recorded Pressure: LV, HR=86, Condition=Condition 1 (Left Ventricle) LV 137/21/38 03:41 PM HR=73 bpm, PNEZ=493/81 mmhg, SpO2=95.0 %, Resp=25 B/min, Comment=NSR 03:42 PM Recorded Pressure: LV, Ao, HR=88, Condition=Condition 1 (Left Ventricle) LV 157/19/23, (Aorta) Ao 155/83/114 03:46 PM PCI Status Urgent tsites 03:46 PM HR=84 bpm, PUJB=132/87 mmhg, MrV8=682.0 %, Resp=21 B/min, Comment=NSR 03:46 PM PCI Indication: PCI for high risk Non-STEMI or unstable angina tsites 03:46 PM PCI lesion in Mid RCA. tsites 03:46 PM 6Fr RBR 3.5 Convey guide catheter was used to cannulate the PCI vessel successfully. reused? No tsites 03:46 PM .014 [place] 190cm guide wire across target lesion- successful. reused? No tsites 03:46 PM Inflation device was opened. tsites 03:47 PM 2.5 mm x 20 mm Emerge [place]or[place] balloon across target lesion- successful. reused? No tsites 03:47 PM ACT drawn tsites 03:48 PM Mid/Distal Left Anterior Descending Coronary Artery and diagonal branches with 50% stenosis. If graft is supplying this area, 0 % stenosis tsites 03:48 PM Circumflex, Obtuse Marginal, Left Posterior Descending, and Left Posterolateral Coronary Arteries with 30 % stenosis. If graft is supplying this area, 0 % stenosis tsites 03:48 PM Right Coronary, Right Posterior Descending Arteries with Right Posterolateral and Acute Marginal branches with 95 % stenosis. If graft is supplying this area, 0 % stenosis tsites 03:48 PM Balloon inflated @ 14 angelica for 14 seconds tsites 03:49 PM Recorded Pressure: Ao, HR=86, Condition=Condition 1 (Aorta) Ao 156/104/129 03:49 PM Balloon inflated @ 14 angelica for 15 seconds tsites 03:51 PM HR=87 bpm, XDUM=557/103 mmhg, SpO2=99.0 %, Resp=21 B/min, Comment=NSR 03:51 PM Time: 15:51 Nitroglycerin 200 mcg Intracoronary Given by Rene Grijalva MD tsites 03:51 PM Balloon catheter removed intact. tsites 03:53 PM 3.5mm x 32mm Rebel [employer] bare metal stent across target lesion- successful Lot #[id number] tsites 03:53 PM Balloon inflated @ 18 angelica for 18 seconds tsites 03:54 PM Time: 15:54 Hydralazine 10 mg Intravenous Given by Elpidio Purdy RN tsites 03:54 PM Stent delivery system removed intact. tsites 03:54 PM 4.5 mm x 20mm NC Emerge balloon across target lesion- successful. reused? No tsites 03:56 PM HR=89 bpm, ZAWB=541/104 mmhg, PhZ8=235.0 %, Resp=20 B/min 03:57 PM Balloon inflated @ 18 angelica for 15 seconds tsites 03:57 PM At 15:57 the ACT was 303 seconds. tsites 03:57 PM Balloon catheter removed intact. tsites 03:57 PM Guide catheter removed intact. tsites 03:58 PM Time: 15:58 Hydralazine 10 mg Intravenous Given by Elpidio Purdy RN tsites 03:59 PM Time: 15:58 Plavix 300 mg Orally Given by Elpidio Purdy RN tsites 04:00 PM NIBP STAT measurement started. 04:00 PM Procedure completed at 16:00 tsites 04:01 PM Sign out completed: Radiation Dose 333 mGy Fluoro Time: 4.8 Isovue 370 - 500ml contrast 94 ml given by Rene Grijalva MD, [facility]. Complications: NoneCardiac Rehab Consult needed: NoConfirmed administered medications: Yes tsites 04:01 PM ZVRV=359/90 mmhg 04:01 PM Isovue 370 - 500ml,1 Bottle(s) used. tsites 04:01 PM Arterial sheath pulled, Vasc Band closure device used and was Successful S/N. tsites 04:01 PM 14 ml air in Vasc Band. tsites 04:01 PM Post ECG NSR tsites 04:01 PM Recorded ECG: HR=87 Condition=Condition 1 04:04 PM pt complains of 5/10 chest pain tsites 04:04 PM notified tsites 04:04 PM Recorded ECG: HR=82 Condition=Condition 1 04:04 PM Post Blood Pressure 153/90 tsites 04:05 PM Time: 16:05 Fentanyl 50 mcg Intravenous Given by Elpidio Purdy RN tsites 04:06 PM HR=86 bpm, WJDF=817/81 mmhg, Resp=26 B/min 04:06 PM Recorded ECG: HR=87 Condition=Condition 1 04:08 PM NIBP STAT measurement started. 04:09 PM EFMR=544/87 mmhg 04:09 PM Time: 16:09 Nitroglycerin 10 mcg/min Intravenous Given by Elpidio Purdy RN tsites 04:10 PM pt states chest pain is now 4-5/10 tsites 04:10 PM 16:10 Post Pulses Rt Radial 1+ tsites 04:10 PM Information taught Cardiac Cath, PCI, and Vasc Band tsites 04:11 PM PPTS=690/66 mmhg 04:11 PM Education needs Procedure, Disease Process, Plan of Care, and Responsibilities of Patient in Care tsites 04:11 PM Learning barriers :None tsites 04:12 PM Education Methods Verbal tsites 04:12 PM Education evaluation Able to repeat information tsites 04:12 PM Site status No bleeding/hematoma - Rt Wrist as reported by Madisyn Lui RT (R) at 16:12 tsites 04:12 PM Plavix, Effient or Brilinta given Yes tsites 04:12 PM Delay to floor No tsites 04:12 PM Patient out of room: 16:12 tsites 04:12 PM Family placed in consult room. tsites 04:13 PM Report given to Sunshine MALONEY Pt taken to 2NE Room #24. 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 Bilateral groin prepped with Chloraprep by Madisyn Greene RT (R), safety strap applied then patient was draped. Skin intact. tsites 04:47 PM Physician arrived 16:47 tsites 04:47 PM HR=91 bpm, IMDS=116/80 mmhg, VzQ5=455.0 %, Resp=23 B/min 04:48 PM Time out performed according to hospital policy tsites 04:48 PM Time: 16:48 Zofran 4 mg Intravenous Given by Adriana Valle RN tsites 04:49 PM Time: 16:49 Versed 2 mg Intravenous Given by Elpidio Purdy RN tsites 04:49 PM Time: 16:49 Fentanyl 50 mcg Intravenous Given by Elpidio Purdy RN tsites 04:49 PM PCI Status Emergency tsites 04:49 PM 6Fr JR 4 Runway guide catheter was used to cannulate the PCI vessel successfully. reused? No tsites 04:50 PM Access obtained by percutaneous puncture. 6Fr 10cm Terumo [place] sheath placed in right Femoral artery. [id number] tsites 04:50 PM 0.035 145cm Navilyst 3mmJ wire [id number] tsites 04:50 PM 0.035 145cm VSI Ori-Torque wire [id number] tsites 04:50 PM Pressure channel 1 zeroed. 04:51 PM Bolus angiogram of right Femoral complete: 2 ml/sec for a total of 4 mls tsites 04:52 PM unable to advance catheter prepping wrist tsites 04:52 PM Hair removed from procedure site in holding area using clippers. Right wrist prepped with Chloraprep by Adriana Valle RN, safety strap applied then patient was draped. Skin intact. tsites 04:53 PM HR=87 bpm, SPPY=335/81 mmhg, SpO2=94.0 %, Resp=14 B/min 04:53 PM Vitals capture stopped. 04:54 PM Vitals capture started with the following parameters, Patient=Adult, Interval=5 min, Initial Sglssukd=984 mmHg, Deflation Rate=5 mmHg, Cuff placed on Right Arm 04:55 PM vasc band removed from right wrist tsites 04:55 PM HR=90 bpm, CZUV=290/91 mmhg, SpO2=96.0 %, Resp=13 B/min 04:56 PM prepping left wrist tsites 04:57 PM Hair removed from procedure site in procedure lab using clippers. Left wrist prepped with Chloraprep by Elpidio Purdy RN, safety strap applied then patient was draped. Skin intact. tsites 04:58 PM vasc band applied to right wrist per Kiran Ravi RN 14 air tsites 05:00 PM HR=88 bpm, APMP=478/96 mmhg, LnY5=004.0 %, Resp=15 B/min 05:03 PM Access obtained by percutaneous puncture. 6Fr 10cm Terumo Glidesheath sheath placed in left Radial artery. [id number] tsites 05:03 PM JR 4 guide catheter inserted tsites 05:03 PM 0.035 260cm Navilyst 3mmJ wire [id number] tsites 05:05 PM HR=85 bpm, NIBP=71/48 mmhg, SpO2=95.0 %, Resp=21 B/min 05:05 PM NIBP STAT measurement started. 05:06 PM HR=84 bpm, ZEVP=412/94 mmhg, MqA9=319 %, Resp=24 B/min 05:06 PM Time: 17:06 Haldol 2.5 mg Intravenous Given by Elpidio Purdy RN tsites 05:07 PM Recorded Pressure: Ao, HR=84, Condition=Condition 1 (Aorta) Ao 98/53/71 05:08 PM RCA angiography performed in multiple views. tsites 05:08 PM wire reinserted catheter removed tsites 05:08 PM 5Fr FL 4 catheter inserted over the wire DNC tsites 05:10 PM LCA angiography performed in multiple views. tsites 05:10 PM Recorded Pressure: Ao, HR=87, Condition=Condition 1 (Aorta) Ao 93/42/66 05:10 PM Catheter removed tsites 05:11 PM HR=87 bpm, NIBP=94/55 mmhg, SpO2=87.0 %, Resp=22 B/min 05:13 PM Procedure completed at 16:00 tsites 05:13 PM Sign out completed: Radiation Dose 174 mGy Fluoro Time: 4.8 Isovue 370 - 500ml contrast 38 ml given by Rene Grijalva MD, [facility]. Complications: NoneCardiac Rehab Consult needed: NoConfirmed administered medications: Yes tsites 05:13 PM Isovue 370 - 500ml,1 Bottle(s) used. tsites 05:14 PM Arterial sheath pulled, Vasc Band closure device used and was Successful S/N. tsites 05:14 PM Sheath left in place to be pulled on floor/holding areaV+Pad right groin tsites 05:14 PM 14 ml air in Vasc Band. right band tsites 05:14 PM 11 ml air in Vasc Band. left band tsites 05:14 PM Post ECG NSR tsites 05:15 PM HR=87 bpm, VELL=727/60 mmhg, SpO2=90 %, Resp=18 B/min 05:16 PM Post Blood Pressure 105/60 tsites 05:16 PM 17:16 Post Pulses Bilateral radial 1+ tsites 05:17 PM Information taught Cardiac Cath and Vasc Band tsites 05:17 PM Education needs Procedure, Plan of Care, and Responsibilities of Patient in Care tsites 05:17 PM Learning barriers :None tsites 05:17 PM Education Methods Verbal tsites 05:17 PM Education evaluation Able to repeat information tsites 05:17 PM Site status No bleeding/hematoma - Rt Groin as reported by Madisyn Lui RT (R) at 17:17 tsites 05:18 PM Delay to floor No tsites 05:18 PM Patient out of room: 17:18 tsites 05:18 PM Family placed in consult room. tsites 05:23 PM Report given to chapito MALONEY Pt taken to 2N Room #5. 17:19 tsites 06:04 PM pt dry heaving and gagging, given 4mg Zofran IVP by this RN [email or web address] 06:32 PM update called to [email or web address] 06:32 PM pt taken to 2N5 by this RN and Katelyn Wilkins RT [email or web address] Complications Complication None None Hemodynamics Pressures Site Systolic/A Wave Diastolic/V Wave Mean AO 105 66 84 LV 137 21 38 LV 157 19 23 AO 155 83 114 AO 156 104 129 AO 98 53 71 AO 93 42 66 Post Procedure Information Blood Pressure: 105/60 mmHg Rhythm: NSR Post procedural instructions were given Closure Device Time Device Success/Fail 02/25/2017 4:13:00 PM Mechanical Compression Successful Site Checks Time Location Status Staff Sheath In? Note 04:12 PM Rt Wrist No bleeding/hematoma Madisyn Lui RT (R) 05:17 PM Rt Groin No bleeding/hematoma Madisyn Lui RT (R) 05:30 PM Rt Groin No bleeding/ No Hematoma Ronny oFrrester RN 05:30 PM Rt Wrist No bleeding/ No Hematoma Ronny Forrester RN Vasc band in place 05:30 PM Lt Wrist No bleeding/ No Hematoma Ronny Forrester RN Vasc band in place. 05:45 PM Rt Groin No bleeding/ No Hematoma Ronny Forrester RN 05:45 PM Rt Wrist No bleeding/ No Hematoma Ronny Forrester RN 2 ml air deflated. 05:45 PM Lt Wrist No bleeding/ No Hematoma Ronny Forrester RN Vasc band in place 06:03 PM Rt Wrist No bleeding/ No Hematoma Coby Bailey RN 2cc air deflated 06:03 PM Lt Groin No bleeding/ No Hematoma Coby Bailey RN 06:03 PM Rt Groin No bleeding/ No Hematoma Coby Bailey RN Yes 06:16 PM Rt Wrist No bleeding/ No Hematoma Coby Bailey RN 2cc air deflated 06:16 PM Lt Wrist No bleeding/ No Hematoma Coby Bailey RN 06:16 PM Rt Groin No bleeding/ No Hematoma Coby Bailey RN Yes Pulses Time Site Pre-Procedure Post-Procedure Note Bilateral DP & PT 2+ Bilateral radial 2+ 4:10:00 PM Rt Radial 1+ 5:16:00 PM Bilateral radial 1+ 02/25/2017 5:45:00 PM Bilateral DP & PT 2+ 02/25/2017 5:45:00 PM Bilateral radial 1+ 02/25/2017 6:14:00 PM Bilateral radial 1+ 02/25/2017 6:14:00 PM Bilateral DP & PT 2+ Updated by Coby Bailey RN on 02/25/2017 6:33:15 PM electronically signed on 03/02/2017 7:52:44 AM with status of Final
--- NOTE | 2017-03-02 16:07 | Invasive Diagnostic Lab Proc ---
Name: Al Walker Date of Study: 02/25/2017 Date: 1930 Ht: 72.0in Medical Record#: [id number] Age: 86 Wt: 189.00lb Gender: Male BSA: 2.08 Order #: [id number] BMI: 25.63 Physicians Procedure Physician: Rene Grijalva MD, [facility] Referring MD: Referring MD: Staff Name Position Time In Elpidio Purdy RN [employer] 05:40 PM Adriana Valle RN [employer] 05:40 PM Madisyn Greene RT (R) Monitor 05:40 PM Madisyn Lui RT (R) Scrub 05:40 PM Indications Indication Unstable Angina Procedures Performed Procedure CORONARY ARTERY ANGIO S&I Pre-Procedure Checklist Informed consent is complete signed and on chart. H&P is on chart. ID band is on and ID verified with patient. Patient NPO for procedure The procedure was described for the patient and questions were answered. Blood Pressure: 122/59 ECG is on chart. Rhythm: NSR Plan of Care Patient will tolerate the procedure without complications. Adequate level of comfort will be maintained. Hemodynamics will remain stable Patient will recover from procedure without complications. Respiratory function will be maintained. Cardiac rhythm will remain stable. Patient temperature will be maintained. Patient and/or family have verbalized understanding of the procedure. Patient Education Chief Complaint/Reason for Test: Cardiac Cath Developmental Category: Geriatric (65+ years) Developmentally Appropriate for Age: Yes Learning Barriers: None Education Needs: Procedure Education Method: Verbal Information Taught: Cardiac Cath Educational Evaluation: Able to repeat information Intravenous Access Time IV Size Location DC'd Fluid/Drip Rate Units RN 18g 1 07/30" Patent On Arrival Lt Antecubital 0.9NaCl 25 ml/hr Elpidio Purdy RN Allergies Oxycodone acetaminophen Dexlansoprazole Vital Signs Time BP (mmHg) HR (bpm) O2 Sat. RR (bpm) LOC 122 / 59 94 98 % 16 4 = Oriented but drowsy Procedural Medications Time Medication Dose Units Method Given By 04:42 PM Oxygen 2 L/min nasal cannula Elpidio Purdy RN 04:48 PM Zofran 4 mg Intravenous Adriana Valle RN 04:49 PM Versed 2 mg Intravenous Elpidio Purdy RN 04:49 PM Fentanyl 50 mcg Intravenous Elpidio Purdy RN 05:06 PM Haldol 2.5 mg Intravenous Elpidio Purdy RN ASA Classification: CLASS II- Mild systemic disease (i.e. well-controlled diabetes, hypertension, asthma, cigarette smoking) Elana Score Preprocedure Postprocedure Activity 2- Moves 4 extremities sustained head lift Activity 2- Moves 4 extremities sustained head lift Circulation 2- SBP +/= 20 points of pre-anesthetic level Circulation 2- SBP +/= 20 points of pre-anesthetic level Consciousness 2- Awake and alert oriented x 3 Consciousness 2- Awake and alert oriented x 3 O2 Saturation 2- Able to maintain O2 satruation of 92% on room air O2 Saturation 2- Able to maintain O2 satruation of 92% on room air Respiratory 2- Able to deep breathe and cough well Respiratory 2- Able to deep breathe and cough well Total Score 10 Total Score 10 Contrast Agent: Isovue Diagnostic Contrast: 38 ml Total Contrast: 38 ml Fluoro Dose: 174 mGy Procedure Log Time Note Enter By 04:40 PM 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 16:40 tsites 04:40 PM Elpidio Purdy RN 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: Salesperson [employer] Time in: 16:40 tsites 04:40 PM Adriana Valle RN Position: Salesperson [employer] Time in: 16:40 tsites 04:40 PM Madisyn Greene RT (R) Position: Monitor Time in: 16:40 tsites 04:40 PM Madisyn Lui (R) Position: Scrub Time in: 16:40 tsites 04:41 PM Patient charges- Angio tray pack, Navilyst 3mm J, Pulse Oximetry and ACIST tubing and transducer tsites 04:41 PM Case Delayed No tsites 04:41 PM Clinical Presentation: Unstable angina tsites 04:42 PM Time:16:42 Oxygen on at 2 L/min per nasal cannula by Elpidio Purdy RN tsites 04:44 PM Hair removed from procedure site in holding area using clippers. Bilateral groin prepped with Chloraprep by Madisyn Greene (R), safety strap applied then patient was draped. Skin intact. tsites 04:47 PM Physician arrived 16:47 tsites 04:48 PM Procedure start 16:48 tsites 04:48 PM Time out performed according to hospital policy tsites 04:48 PM Time: 16:48 Zofran 4 mg Intravenous Given by Adriana Valle RN tsites 04:49 PM Time: 16:49 Versed 2 mg Intravenous Given by Elpidio Purdy RN tsites 04:49 PM Time: 16:49 Fentanyl 50 mcg Intravenous Given by Elpidio Purdy RN tsites 04:50 PM Access obtained by percutaneous puncture. 6Fr 10cm Terumo [place] sheath placed in right Femoral artery. [id number] tsites 04:51 PM Unable to advance wire prepping rt wrist vasc band removed tsites 04:55 PM Arterial sheath pulled, Vasc Band closure device used and was Successful S/N. rt tsites 04:55 PM vasc band applied to rt wrist per Kiran licea RN 14 ml air tsites 04:56 PM prepping lt wrist tsites 05:03 PM Access obtained by percutaneous puncture. 6Fr 10cm Terumo Glidesheath sheath placed in left Radial artery. [id number] tsites 05:03 PM 6Fr JR 4 Runway guide catheter was used to cannulate the PCI vessel successfully. reused? No tsites 05:03 PM 0.035 145cm Navilyst 3mmJ wire [id number] tsites 05:06 PM Time: 17:06 Haldol 2.5 mg Intravenous Given by Elpidio Purdy RN tsites 05:08 PM 5Fr FL 4 catheter inserted over the wire [facility] tsites 05:08 PM RCA angiography performed in multiple views. tsites 05:08 PM wire reinserted catheter removed tsites 05:10 PM LCA angiography performed in multiple views. tsites 05:10 PM wire reinserted catheter removed tsites 05:12 PM Arterial sheath pulled, Vasc Band closure device used and was Successful S/N. lt tsites 05:13 PM Procedure completed at 17:13 tsites 05:13 PM Sign out completed: Radiation Dose 174 mGy Fluoro Time: 4.8 Isovue 370 - 200ml contrast 38 ml given by Rene Grijalva MD, [facility]. Complications: NoneCardiac Rehab Consult needed: NoConfirmed administered medications: No tsites 05:13 PM Isovue 370 - 200ml,1 Bottle(s) used. tsites 05:14 PM 11 ml air in Vasc Band. lt tsites 05:14 PM Post ECG NSR tsites 05:14 PM Sheath left in place to be pulled on floor/holding areaV+Pad tsites 05:14 PM 14 ml air in Vasc Band. rt tsites 05:16 PM Post Blood Pressure 105/60 tsites 05:16 PM 17:16 Post Pulses Bilateral radial 1+ tsites 05:17 PM Information taught Cardiac Cath and Vasc Band tsites 05:17 PM Education needs Procedure, Plan of Care, and Responsibilities of Patient in Care tsites 05:17 PM Learning barriers :None tsites 05:17 PM Education Methods Verbal tsites 05:17 PM Education evaluation Able to repeat information tsites 05:17 PM Site status No bleeding/hematoma - Rt Groin as reported by Madisyn Lui RT (R) at 17:17 tsites 05:17 PM Site status No bleeding/hematoma - Rt Wrist as reported by Madisyn Lui RT (R) at 17:17 tsites 05:17 PM Site status No bleeding/hematoma - Lt Wrist as reported by Madisyn Lui RT (R) at 17:17 tsites 05:18 PM Patient out of room: 17:18 tsites 05:18 PM Family placed in holding area. tsites 05:18 PM Lesion found in Mid LAD. Pre Stenosis: 20 Pre KERRI Flow: tsites 05:18 PM Lesion found in 1st Diagonal. Pre Stenosis: 50 Pre KERRI Flow: tsites 05:18 PM Lesion found in Mid Circumflex. Pre Stenosis: 30 Pre KERRI Flow: tsites 05:18 PM Lesion found in 1st Marginal. Pre Stenosis: 50 Pre KERRI Flow: tsites 05:23 PM Report given to Adelina MALONEY Pt taken to 2N Room #5. 17:23 tsites 06:04 PM pt dry heaving and gagging 4 Zofran given per [place] Elaine RN tsites 06:32 PM update called to 2N tsites 06:32 PM pt taken to 2N per Miriam Wilkins RT tsites Complications Complication None Post Procedure Information Blood Pressure: 105/60 mmHg Rhythm: NSR Post procedural instructions were given Closure Device Time Device Success/Fail Mechanical Compression Successful Mechanical Compression Successful Manual Compression Site Checks Time Location Status Staff Sheath In? Note 05:17 PM Rt Groin No bleeding/hematoma Madisyn Lui RT (R) 05:17 PM Rt Wrist No bleeding/hematoma Madisyn Lui RT (R) 05:17 PM Lt Wrist No bleeding/hematoma Madisyn Lui RT (R) Pulses Time Site Pre-Procedure Post-Procedure Note Bilateral DP & PT 2+ Bilateral radial 2+ Bilateral radial 1+ Updated by Madisyn Sites, RT (R) on 03/02/2017 4:00:11 PM Madisyn Sites, RT electronically signed on 03/02/2017 4:00:42 PM with status of Final
--- NOTE | 2017-03-02 16:34 | Invasive Diagnostic Lab Proc ---
Name: Al Walker Date of Study: 02/25/2017 Date: 1930 Ht: 72.0in Medical Record#: [id number] Age: 86 Wt: 189.38lb Gender: Male BSA: 2.08 Order #: [id number] BMI: 25.68 Physicians Procedure Physician: Rene Grijalva MD, [facility] Referring MD: Referring MD: Staff Name Position Time In Elpidio Purdy RN [employer] Sur[employer] 03:19 PM Adriana Valle RN [employer] Sur[employer] 03:19 PM Coby Bailey RN Monitor 03:19 PM Madisyn Greene RT (R) 03:19 PM Madisyn Lui RT (R) Scrub 03:19 PM Indications Indication Non-Stemi Procedures Performed Procedure L HRT ARTERY/VENTRICLE ANGIO PRQ CARD BM STENT W/ANGIO 1 VSL MOD SED OTH PHYS/QHP 5/>YRS MOD SED OTHER PHYS/QHP EA MOD SED OTHER PHYS/QHP EA Pre-Procedure Checklist Informed consent is complete signed and on chart. H&P is on chart. ID band is on and ID verified with patient. Patient NPO for procedure The procedure was described for the patient and questions were answered. Blood Pressure: 161/92 ECG is on chart. Rhythm: NSR Plan of Care Patient will tolerate the procedure without complications. Adequate level of comfort will be maintained. Hemodynamics will remain stable Patient will recover from procedure without complications. Respiratory function will be maintained. Cardiac rhythm will remain stable. Patient temperature will be maintained. Patient and/or family have verbalized understanding of the procedure. Patient Education Intravenous Access Time IV Size Location DC'd Fluid/Drip Rate Units RN 18g 1 07/30" Patent On Arrival Lt Antecubital 0.9NaCl 25 ml/hr Elpidio Purdy RN Allergies Oxycodone acetaminophen Dexlansoprazole Vital Signs Time BP (mmHg) HR (bpm) O2 Sat. RR (bpm) LOC 161 / 92 94 94 % 16 5 = Fully awake and oriented or at pre-proc level 03:21 PM / % 5 = Fully awake and oriented or at pre-proc level 03:21 PM / % 4 = Oriented but drowsy 04:01 PM 153 / 90 % 04:06 PM 138 / 81 86 % 26 04:09 PM 146 / 87 % 04:11 PM 142 / 66 % 04:37 PM 122 / 59 % 04:42 PM 127 / 77 104 94 % 22 Procedural Medications Time Medication Dose Units Method Given By 03:20 PM Oxygen 2 L/min nasal cannula Elpidio Purdy RN 03:22 PM Versed 2 mg Intravenous Elpidio Purdy RN 03:22 PM Fentanyl 50 mcg Intravenous Elpidio Purdy RN 03:33 PM Lidocaine 2% 0.5 ml Subcutaneous Rene Grijalva MD, [facility] 03:33 PM Heparin 2000 units Nitroglycerin 200 mcg Verapamil 2.5 mg Intraarterial Rene Grijlava MD, F[facility] 03:51 PM Nitroglycerin 200 mcg Intracoronary Rene Grijalva MD 03:54 PM Hydralazine 10 mg Intravenous Elpidio Purdy RN 03:58 PM Hydralazine 10 mg Intravenous Elpidio Purdy RN 03:58 PM Plavix 300 mg Orally Elpidio Purdy RN 04:05 PM Fentanyl 50 mcg Intravenous Elpidio Purdy RN 04:09 PM Nitroglycerin 10 mcg/min Intravenous Elpidio Purdy RN ASA Classification: CLASS II- Mild systemic disease (i.e. well-controlled diabetes, hypertension, asthma, cigarette smoking) Elana Score Preprocedure Postprocedure Activity 2- Moves 4 extremities sustained head lift Activity 2- Moves 4 extremities sustained head lift Circulation 2- SBP +/= 20 points of pre-anesthetic level Circulation 2- SBP +/= 20 points of pre-anesthetic level Consciousness 2- Awake and alert oriented x 3 Consciousness 2- Awake and alert oriented x 3 O2 Saturation 2- Able to maintain O2 satruation of 92% on room air O2 Saturation 2- Able to maintain O2 satruation of 92% on room air Respiratory 2- Able to deep breathe and cough well Respiratory 2- Able to deep breathe and cough well Total Score 10 Total Score 10 Contrast Agent: Isovue Diagnostic Contrast: 38 ml Total Contrast: 38 ml Fluoro Dose: 174 mGy Activated Clotting Time Time Seconds to Clot 03:57 PM 303 Procedure Log Time Note Enter By 03:11 PM CathStat 03:11 PM Case Start 03:18 PM 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 well-controlled diabetes, hypertension, asthma, cigarette smoking) [email or web address] 03:19 PM Stephanie completed [email or web address] 03:19 PM Sign in performed according to hospital policy. [email or web address] 03:19 PM Procedure start 15:19 [email or web address] 03:19 PM Patient charges- Angio tray pack, Navilyst 3mm J, Pulse Oximetry and ACIST tubing and transducer [email or web address] 03:19 PM Elpidio Purdy RN Position: [employer] Surfacer Time in: 15:19 [email or web address] 03:19 PM Adriana Valle RN Position: [employer] Surfacer Time in: 15: [email or web address] 03:19 PM Coby Bailey RN Position: Monitor Time in: 15: [email or web address] 03:19 PM Ramona Madisyn RT (R) Position: Time in: 15:19 [email or web address] 03:19 PM Madisyn Lui RT (R) Position: Scrub Time in: 15:19 [email or web address] 03:19 PM Hair removed from procedure site in procedure lab using clippers. Right wrist prepped with Chloraprep by Madisyn Lui RT (R), safety strap applied then patient was draped. Skin intact. [email or web address] 03:20 PM Hair removed from procedure site in procedure lab using clippers. Right groin prepped with Chloraprep by Madisyn Lui RT (R), safety strap applied then patient was draped. Skin intact. [email or web address] 03:20 PM Recorded ECG: HR=97 Condition=Condition 1 03:20 PM Vitals capture started with the following parameters, Patient=Adult, Interval=5 min, Initial Azhfkxft=830 mmHg, Deflation Rate=5 mmHg, Cuff placed on Right Arm 03:20 PM Time: 15:20 Oxygen on at 2 L/min per nasal cannula by Elpidio Purdy RN [email or web address] 03:21 PM Time: 15:20 Patient comfortable and pain free: Yes [email or web address] 03:21 PM Time: 15:21LOC: 5 = Fully awake and oriented or at pre-proc level [email or web address] 03:21 PM Clinical Presentation: Non-STEMI [email or web address] 03:22 PM HR=94 bpm, XODC=299/98 mmhg, SpO2=98.0 %, Resp=34 B/min, Comment=NSR 03: PM Time: 15: Versed 2 mg Intravenous Given by Elpidio Purdy RN [email or web address] 03:22 PM Time: 15:22 Fentanyl 50 mcg Intravenous Given by Elpidio Purdy RN [email or web address] 03:26 PM HR=81 bpm, QEEL=588/90 mmhg, SpO2=99.0 %, Resp=27 B/min, Comment=NSR 03:31 PM HR=81 bpm, YLOV=412/88 mmhg, SpO2=99.0 %, Resp=23 B/min, Comment=NSR 03:31 PM Time out performed according to hospital policy [email or web address] 03:33 PM Pressure channel 1 zeroed. 03:33 PM Time: 15:33 0.5 ml Lidocaine 2% to right radial Subcutaneous Given by Rene Grijalva MD, [facility] [email or web address] 03:33 PM Access obtained by percutaneous puncture. 6Fr 10cm Terumo Glidesheath sheath placed in right Radial artery. [id number] [email or web address] 03:34 PM Time: 15:33 Patient given 2,000 units Heparin, 200 mcg Nitroglycerin, and 2.5 mg Verapamil Intraarterial by Rene Grijalva MD, [facility] [email or web address] 03:34 PM 5Fr TIG catheter inserted over the wire [facility] [email or web address] 03:35 PM 0.035 260cm Navilyst 3mmJ wire [id number] [email or web address] 03:35 PM unable to advance wire. [email or web address] 03:35 PM Wire removed [email or web address] 03:36 PM 0.035 150cm VSI Ori-Torque wire [id number] [email or web address] 03:36 PM Time: 15:21LOC: 4 = Oriented but drowsy [email or web address] 03:36 PM Time: 15:21 Patient comfortable and pain free: Yes [email or web address] 03:36 PM HR=83 bpm, BJPO=080/67 mmhg, NyS0=392.0 %, Resp=21 B/min, Comment=NSR 03:36 PM Wire removed [email or web address] 03:36 PM LCA angiography performed in multiple views. [email or web address] 03:36 PM Recorded Pressure: Ao, HR=83, Condition=Condition 1 (Aorta) Ao 105/66/84 03:37 PM Lesion found in Mid LAD. Pre Stenosis: 20 Pre KERRI Flow: [email or web address] 03:38 PM Lesion found in 1st Diagonal. Pre Stenosis: 50 Pre KERRI Flow: [email or web address] 03:38 PM Lesion found in Mid Circumflex. Pre Stenosis: 30 Pre KERRI Flow: [email or web address] 03:39 PM Coronary Dominance: right [email or web address] 03:39 PM RCA angiography performed in multiple views. [email or web address] 03:39 PM Catheter removed [email or web address] 03:39 PM Lesion found in Mid RCA. Pre Stenosis: 95 Pre KERRI Flow: [email or web address] 03:40 PM Pressure channel 1 zeroed. 03:40 PM Recorded Pressure: LV, HR=86, Condition=Condition 1 (Left Ventricle) LV 137/21/38 03:41 PM HR=73 bpm, GZQF=111/81 mmhg, SpO2=95.0 %, Resp=25 B/min, Comment=NSR 03:42 PM Recorded Pressure: LV, Ao, HR=88, Condition=Condition 1 (Left Ventricle) LV 157/19/23, (Aorta) Ao 155/83/114 03:46 PM PCI Status Urgent tsites 03:46 PM HR=84 bpm, WNZY=449/87 mmhg, FzF0=368.0 %, Resp=21 B/min, Comment=NSR 03:46 PM PCI Indication: PCI for high risk Non-STEMI or unstable angina tsites 03:46 PM PCI lesion in Mid RCA. tsites 03:46 PM 6Fr RBR 3.5 [place] guide catheter was used to cannulate the PCI vessel successfully. reused? No tsites 03:46 PM .014 [place] 190cm guide wire across target lesion- successful. reused? No tsites 03:46 PM Inflation device was opened. tsites 03:47 PM 2.5 mm x 20 mm Emerge Monorail balloon across target lesion- successful. reused? No tsites 03:47 PM ACT drawn tsites 03:48 PM Mid/Distal Left Anterior Descending Coronary Artery and diagonal branches with 50% stenosis. If graft is supplying this area, 0 % stenosis tsites 03:48 PM Circumflex, Obtuse Marginal, Left Posterior Descending, and Left Posterolateral Coronary Arteries with 30 % stenosis. If graft is supplying this area, 0 % stenosis tsites 03:48 PM Right Coronary, Right Posterior Descending Arteries with Right Posterolateral and Acute Marginal branches with 95 % stenosis. If graft is supplying this area, 0 % stenosis tsites 03:48 PM Balloon inflated @ 14 angelica for 14 seconds tsites 03:49 PM Recorded Pressure: Ao, HR=86, Condition=Condition 1 (Aorta) Ao 156/104/129 03:49 PM Balloon inflated @ 14 angelica for 15 seconds tsites 03:51 PM HR=87 bpm, JDSV=344/103 mmhg, SpO2=99.0 %, Resp=21 B/min, Comment=NSR 03:51 PM Time: 15:51 Nitroglycerin 200 mcg Intracoronary Given by Rene Grijalva MD tsites 03:51 PM Balloon catheter removed intact. tsites 03:53 PM 3.5mm x 32mm Rebel [employer] bare metal stent across target lesion- successful Lot #[id number] tsites 03:53 PM Balloon inflated @ 18 angelica for 18 seconds tsites 03:54 PM Time: 15:54 Hydralazine 10 mg Intravenous Given by Elpidio Purdy RN tsites 03:54 PM Stent delivery system removed intact. tsites 03:54 PM 4.5 mm x 20mm NC Emerge balloon across target lesion- successful. reused? No tsites 03:56 PM HR=89 bpm, OTFC=367/104 mmhg, YwM3=539.0 %, Resp=20 B/min 03:57 PM Balloon inflated @ 18 angelica for 15 seconds tsites 03:57 PM At 15:57 the ACT was 303 seconds. tsites 03:57 PM Balloon catheter removed intact. tsites 03:57 PM Guide catheter removed intact. tsites 03:58 PM Time: 15:58 Hydralazine 10 mg Intravenous Given by Elpidio Purdy RN tsites 03:59 PM Time: 15:58 Plavix 300 mg Orally Given by Elpidio Purdy RN tsites 04:00 PM NIBP STAT measurement started. 04:00 PM Procedure completed at 16:00 tsites 04:01 PM Sign out completed: Radiation Dose 333 mGy Fluoro Time: 4.8 Isovue 370 - 500ml contrast 94 ml given by Rene Grijalva MD, [facility]. Complications: NoneCardiac Rehab Consult needed: NoConfirmed administered medications: Yes tsites 04:01 PM ABWZ=878/90 mmhg 04:01 PM Isovue 370 - 500ml,1 Bottle(s) used. tsites 04:01 PM Arterial sheath pulled, Vasc Band closure device used and was Successful S/N. tsites 04:01 PM 14 ml air in Vasc Band. tsites 04:01 PM Post ECG NSR tsites 04:01 PM Recorded ECG: HR=87 Condition=Condition 1 04:04 PM pt complains of 5/10 chest pain tsites 04:04 PM notified tsites 04:04 PM Recorded ECG: HR=82 Condition=Condition 1 04:04 PM Post Blood Pressure 153/90 tsites 04:05 PM Time: 16:05 Fentanyl 50 mcg Intravenous Given by Elpidio Purdy RN tsites 04:06 PM HR=86 bpm, FFGO=628/81 mmhg, Resp=26 B/min 04:06 PM Recorded ECG: HR=87 Condition=Condition 1 04:08 PM NIBP STAT measurement started. 04:09 PM TROL=370/87 mmhg 04:09 PM Time: 16:09 Nitroglycerin 10 mcg/min Intravenous Given by Elpidio Purdy RN tsites 04:10 PM pt states chest pain is now 4-5/10 tsites 04:10 PM 16:10 Post Pulses Rt Radial 1+ tsites 04:10 PM Information taught Cardiac Cath, PCI, and Vasc Band tsites 04:11 PM RSLY=317/66 mmhg 04:11 PM Education needs Procedure, Disease Process, Plan of Care, and Responsibilities of Patient in Care tsites 04:11 PM Learning barriers :None tsites 04:12 PM Education Methods Verbal tsites 04:12 PM Education evaluation Able to repeat information tsites 04:12 PM Site status No bleeding/hematoma - Rt Wrist as reported by Madisyn Lui RT (R) at 16:12 tsites 04:12 PM Plavix, Effient or Brilinta given Yes tsites 04:12 PM Delay to floor No tsites 04:12 PM Patient out of room: 16:12 tsites 04:12 PM Family placed in consult room. tsites 04:13 PM Report given to Sunshine MALONEY Pt taken to 2NE Room #24. 16:12 tsites 04:22 PM pt taken to holding room to monitor chest pain tsites Equipment Used Size Length Diameter Item Category ACT Other Angio tray pack Other Terumo Glidesheath sheath Navilyst 3mmJ wire VSI Ori-Torque wire Britetip Guide catheter [employer] Guidewire Inflation kit Other Emerge PTCA Dilatation Catheter Monorail Balloon VeriFLEX RE Bare Metal Stent Emerge PTCA Dilatation Catheter Monorail Balloon Isovue 370- 500ml Contrast Vasc Band Manual Compression Manual compression Runway Guide catheter Navilyst 3mmJ wire VSI Ori-Torque wire Terumo Glidesheath sheath Navilyst 3mmJ wire Terumo [place] sheath Vasc Band Manual Compression Manual compression V+Pad Patch Complications Complication None None Hemodynamics Pressures Site Systolic/A Wave Diastolic/V Wave Mean AO 105 66 84 LV 137 21 38 LV 157 19 23 AO 155 83 114 AO 156 104 129 Post Procedure Information Blood Pressure: 105/60 mmHg Rhythm: NSR Post procedural instructions were given Closure Device Time Device Success/Fail 02/25/2017 4:13:00 PM Mechanical Compression Successful Site Checks Time Location Status Staff Sheath In? Note 04:12 PM Rt Wrist No bleeding/hematoma Madisyn Lui RT (R) 05:17 PM Rt Groin No bleeding/hematoma Madisyn Lui RT (R) Pulses Time Site Pre-Procedure Post-Procedure Note Bilateral DP & PT 2+ Bilateral radial 2+ 4:10:00 PM Rt Radial 1+ Updated by Madisyn Greene RT (R) on 03/02/2017 4:21:00 PM Madisyn Greene RT electronically signed on 03/02/2017 4:29:55 PM with status of Final
--- NOTE | 2017-03-04 09:32 | Invasive Diagnostic Lab ---
Name: Al Walker Date of Study: 02/25/2017 Date: 1930 Ht: 182.9 cm /72.0 in Medical Record#: [id number] Age: 86 Wt: 85.7 kg / 189.00 lb Account/Order#: [id number] Gender: Male BSA: 2.08 Order #: [id number] Fluoro Dose: 174 mGy BMI: 25.63 Procedure Physician: Rene Grijalva MD, [facility] Referring MD: Referring MD: Procedures Performed: CORONARY ANGIOGRAPHY Indications: Unstable Angina after PCI Impressions: Stent placed from a prior procedure in the RCA is patent. Recommendations: Optimal medical therapy of patient's disease. Aggressive risk factor modification. Patient being referred for cardiac rehab. History/Risk Factors: Diabetes Hypertension Current/Recent Smoker Chronic Lung Disease Procedure Access obtained in the left Radial artery by percutaneous puncture Complications: None Contrast: Isovue 38ml Closure Device: Mechanical Compression, Mechanical Compression, Manual Compression Coronary Dominance: right Lesion Findings/Interventions * Left Main Coronary Artery The LMCA is angiographically free of disease. * Left Anterior Descending There is a 20% stenosis in the Mid LAD. There is a 50% stenosis in the 1st Diagonal. * Circumflex There is a 30% stenosis in the Mid Circumflex. There is a 50% stenosis in the 1st Marginal. * Right Coronary Artery The Right Coronary Artery has patent stents present from a previous procedure. Otherwise minimal disease Updated by Madisyn Greene RT (R) on 03/02/2017 4:01:09 PM Rene Grijalva MD, FACC electronically signed on 03/04/2017 9:28:58 AM with status of Final
== END 2017-02-27 12:16 | disposition home or self-care (01) | DRG 249 ==
LOC: EMEROO 10:20 → 2NENU 10:20 → 2NNU 02-25 19:29
PROVIDERS: ADMIT Nurse Practitioner Family; ATTEND Internal Medicine